=== PATIENT | male | born 1985 | race Caucasian/White ===

== ENCOUNTER 2016-10-21 19:03 | Inpatient (IN) | payer OTHER ==
[~2016-10-21] VITALS: Ht 175.3 cm; Wt 82.1 kg
[~2016-10-21 19:03] MED LIST: ABILIFY15 M1 PO; ALPRAZOLAM2 M2 PO; GABAPENTIN300 M2 PO; METHADONE10 MG/5 M2 PO
--- NOTE | 2016-10-21 19:20 | ED PSYCHIATRIC COMPLAINT ---
See Addendum History of Present Illness General Chief Complaint: Psychiatric Related Complaint Stated Complaint: DEPRESSION, +SI Source: patient Exam Limitations: no limitations Vital Signs & Intake/Output Vital Signs & Intake/Output Vital Signs Date Time Temp Pulse Resp B/P Pulse O2 O2 Flow FiO2 Ox Delivery Rate 10/23 1422 97.9 74 18 125/60 97 Room Air 10/23 1037 97.5 78 18 120/77 98 Room Air 10/23 0649 96.9 79 20 114/67 97 Room Air 10/22 2232 96.9 71 16 119/56 97 Room Air 10/22 1851 98.2 70 18 118/55 99 Room Air Allergies Coded Allergies: doxycycline (Severe, ANAPHYLAXIS 03/06/16) Fish Containing Products (UNKNOWN 03/06/16) cefaclor (UNKNOWN 03/06/16) codeine (UNKNONW 03/06/16) venom-honey bee (bee venom (honey bee)) (UNKNOWN 03/06/16) Triage Note: RECEIVED 30 YO MALE C/O "I DON'T WANT TO LIVE ANYMORE". PT C/O SEVERE DEPRESSION, PT HAS SELF INFLICTED CUT LI ON LEFT INNER WRIST. Triage Nurses Notes Reviewed? yes Onset: Gradual Duration: week(s):, waxing and waning Timing: recent history Severity: moderate Associated Symptoms: anxiety, suicidal ideation HPI: 30 yo gentleman presents with depression and suicidal ideation. He notes, "I've been feeling depressed for a long time... I'm under a lot of stress... My son's friend has been staying with us... and it makes me uncomfortable." He notes he tried "slashing my wrists, but it was hard." He notes prior attempts that have been unsuccessful. He has been admitted to psyche wards in the past. He denies other illness and is otherwise well. (ABRAHAM WELLINGTON,CASSY Christianson) Reconcile Medications Alprazolam 2 MG TABLET 1 TAB PO TID ANXIETY (Reported) Aripiprazole (Abilify) 15 MG TABLET 1 TAB PO DAILY MENTAL HEALTH (Reported) Gabapentin 300 MG CAPSULE 1 CAP PO TID UNKNOWN (Reported) Methadone HCl 10 MG/5 ML SOLUTION 70 MG PO DAILY MAINTENCE (Reported) (SANTIAGO WELLINGTON,AMBER Baca) Past History Travel History Traveled to [place] past 21 day No Medical History Any Pertinent Medical History? see below for history Neurological: NONE EENT: NONE Cardiovascular: NONE Respiratory: NONE Gastrointestinal: NONE Hepatic: NONE Renal: NONE Musculoskeletal: NONE Psychiatric: anxiety, bipolar disease, PTSD DEPRESSION1 Endocrine: NONE Blood Disorders: NONE Cancer(s): NONE Surgical History Surgical History: none Psychosocial History Who do you live with Family What is your primary language Luxembourgish Tobacco Use: Current Daily Use Daily Tobacco Use Amount/Type: => 5 Cigarettes daily Family History Hx Contributory? No (ABRAHAM WELLINGTON,CASSY Christianson) Review of Systems Review of Systems Constitutional: Reports: no symptoms. EENTM: Reports: no symptoms. Respiratory: Reports: no symptoms. Cardiovascular: Reports: no symptoms. GI: Reports: no symptoms. Genitourinary: Reports: no symptoms. Musculoskeletal: Reports: no symptoms. Skin: Reports: no symptoms. Neurological/Psychological: Reports: no symptoms. Hematologic/Endocrine: Reports: no symptoms. Immunologic/Allergic: Reports: no symptoms. All Other Systems: Reviewed and Negative (ABRAHAM WELLINGTON,CASSY Christianson) Physical Exam Physical Exam General Appearance: well developed/nourished, mild distress Head: atraumatic Eyes: Bilateral: PERRL, EOMI. Ears, Nose, Throat: normal pharynx, normal ENT inspection, hearing grossly normal Neck: normal inspection, supple Respiratory: normal breath sounds Cardiovascular: regular rate/rhythm Gastrointestinal: soft, non-tender Extremities: normal range of motion, superficial linear abrasion on left wrist Neurological/Psychiatric: awake, anxious, flat, oriented x 3 Appearance/Memory/Insight: disheveled Behavoir/Eye Contact/Speech: cooperative Thoughts/Hallucinations: no apparent hallucination Skin: intact, normal color, warm/dry SAD PERSONS SAD PERSONS Response Value Male Sex? yes 1 Depression/Hopelessness? yes 2 Excessive Ethanol/Drug Use? yes 1 Rational Thinking Loss? yes 2 Social Support? has support 0 Total 6 SAD PERSONS Done? yes (ABRAHAM WELLINGTON,CASSY Christianson) Progress Differential Diagnosis: depression, drug abuse, vs other. Plan of Care: Orders Procedure Date/time Status Continuous Observation Monitor 10/23 1600 Active Continuous Observation Monitor 10/23 1200 Active Continuous Observation Monitor 10/23 0759 Active Current Medications Sig/Bonny Start time Last Medication Dose Stop Time Status Admin Aripiprazole 15 MG AT BEDTIME 10/23 2200 AC (Abilify) 10/22/2016 7:20:57 PM Patient signed out to me by Dr. Maldonado. Pending inpatient crisis bed placement. (MANOLO JOHNSTON MD) Initial ED EKG: normal axis, normal intervals, normal p-waves, normal QRS complex, normal sinus rhythm Hand-Off Endorsed To: AMBER MALDONADO MD (CASSY ROSARIO MD) Hand-Off Endorsed To: MANOLO JOHNSTON MD Endorsed Time: 1900 Pending: other (BED SEARCH) Comments: Patient has been seen and evaluated by the triage clinician. Patient is to be admitted. A bed search is underway. (AMBER MALDONADO MD) Hand-Off Endorsed To: AMBER MALDONADO MD Endorsed Time: 0700 (MANOLO JOHNSTON MD) Departure Departure Disposition: STILL A PATIENT Condition: Stable Referrals: OCTAVIA MAN MD Departure Forms: Customer Survey General Discharge Information (CASSY ROSARIO MD) Departure Clinical Impression Primary Impression: Suicidal ideation Secondary Impressions: Cocaine abuse, Depression (AMBER MALDONADO MD) Disposition: STILL A PATIENT Condition: Stable Referrals: OCTAVIA MAN MD Departure Forms: Customer Survey General Discharge Information (CASSY ROSARIO MD) Departure Clinical Impression Primary Impression: Suicidal ideation Secondary Impressions: Cocaine abuse, Depression (AMBER MALDONADO MD) Patient has been seen and evaluated by the triage clinician. Patient is to be admitted. A bed search is underway. (AMBER MALDONADO MD) Hand-Off Endorsed To: AMBER MALDONADO MD Endorsed Time: 07 (MANOLO JOHNSTON MD) Departure Departure Disposition: STILL A PATIENT Condition: Stable Referrals: OCTAVIA MAN MD Departure Forms: Customer Survey General Discharge Information (CASSY ROSARIO MD) Departure Clinical Impression Primary Impression: Suicidal ideation Secondary Impressions: Cocaine abuse, Depression (AMBER MALDONADO MD) Departure Clinical Impression Primary Impression: Suicidal ideation Secondary Impressions: Cocaine abuse, Depression (AMBER MALDONADO MD)
--- NOTE | 2016-10-21 19:27 | NUR ---
SECURITY AT BEDSIDE FOR WANDING. PT CHANGED INTO BLUE SCRUBS. PT HAS 4 PHOTOS OF HIS AND CHILDREN WITH HIM. PER CHARGE NURSE BOONE, PT IS ABLE TO KEEP PHOTOS WITH HIM.
--- NOTE | 2016-10-21 19:48 | NUR ---
URINE TRIO AND SST, LAV AND BLUE TOP TUBES SENT TO LAB.
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
--- NOTE | 2016-10-21 19:55 | NUR ---
1 BELONGINGS BAG IN BH CLOSET AND 1 VALUABLE BAG IN SAFE.
[2016-10-21 19:57] LABS: ABSOLUTE BASOPHIL COUNT 0.1 /CUMM (0.0-0.2); ABSOLUTE EOSINOPHIL COUNT 0.1 /CUMM (0.0-0.7); ABSOLUTE GRANULOCYTE CT 6.6 /CUMM (1.4-6.5); ABSOLUTE LYMPH COUNT 3.6 /CUMM (1.2-3.4); ABSOLUTE MONOCYTE COUNT 0.7 /CUMM (0.10-0.60); BASOPHIL % 0.5 % (0.0-2.0); EOSINOPHIL % 1.1 % (0-5); GRANULOCYTE % 59.5 % (42.2-75.2); HEMATOCRIT 45.3 % (42-52); MEAN CORPUSCULAR HGB 28.6 PG (27.0-31.0); MEAN CORPUSCULAR HGB CONC 32.9 G/DL (33.0-37.0); MEAN PLATELET VOLUME 7.7 FL (7.4-10.4); PLATELET COUNT 272 /CUMM (130-400); RBC DISTRIBUTION WIDTH 14.7 % (11.5-14.5); WHITE BLOOD CELL COUNT 11.1 /CUMM (4.8-10.8)
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
--- NOTE | 2016-10-21 21:45 | NUR ---
PHARMACY CALLED FOR BRIANA.
--- NOTE | 2016-10-21 21:50 | NUR ---
The patient was evaluated by Crisis and discussed with Dr. Ann, who finds the patient to be an acute risk to self and others. He is in need of an inpatient admission and there are no beds on [facility], therefore a bed search will be started in the AM. Case discussed with Dr. Lea and CARMELINA Anguiano.
--- NOTE | 2016-10-21 22:02 | NUR ---
PT MEDICATED WITH ABILIFY, GABAPENTIN AND XANAX PER EMAR. PT ALSO MEDICATED WITH MOTRIN PER EMAR FOR HEADACHE.
--- NOTE | 2016-10-22 00:11 | NUR ---
PT RESTING ON BED. NORMAL RR NOTED. SITTER IN PLACE. WILL CONTINUE TO MONITOR.
--- NOTE | 2016-10-22 02:17 | NUR ---
PT CONTINUES TO REST ON BED. NO DISTRESS NOTED. SITTER IN PLACE.
--- NOTE | 2016-10-22 04:26 | NUR ---
PT RESTING ON BED QUIETLY. NORMAL RR NOTED. WILL CONTINUE TO MONIOR. SITTER IN PLACE.
--- NOTE | 2016-10-22 06:41 | NUR ---
PT RESTING ON BED. NORMAL RR NOTED. SITTER IN PLACE.
--- NOTE | 2016-10-22 07:34 | NUR ---
ASSUMED CARE OF PT AT THIS TIME. PT SLEEPING, REG RESP RATE NOTED. SITTER REMAINS PRESENT. WILL CTM
--- NOTE | 2016-10-22 08:40 | NUR ---
SPOKE TO [facility] IN [place], PTS METHADONE DOSE IS 70MG. AWARE
--- NOTE | 2016-10-22 08:51 | NUR ---
PT MEDICATED WITH METHADONE AND XANAX PER ORDER AT THIS TIME. PT C/O FEELING ANXIOUS. SITTER PRESENT. PT CALM AND COOPERATIVE.
--- NOTE | 2016-10-22 10:28 | NUR ---
Pt. re-evaluated by Crisis. Pt still endorses suicidal thoughts and wants to be admitted somewhere. Since there are no beds currently in [facility], a bed search was conducted. Pt's info was faxed to [facility].
--- NOTE | 2016-10-22 10:45 | NUR ---
PT MEDICATED PER EMAR AT THIS TIME, PT REFUSING ABILIFY AT THIS TIME, PER PT HE LIKES TO TAKE IT AT NIGHTTIME BECAUSE IT MAKES HIM TIRED. PT TEARFUL AT THIS TIME, TALKING ABOUT MULTIPLE STRESSORS IN HIS LIFE. EMOTIONAL SUPPORT PROVIDED.
--- NOTE | 2016-10-22 12:29 | NUR ---
PT RESTING IN ROOM SITTER REMAINS PRESENT. WILL CTM
--- NOTE | 2016-10-22 13:14 | ED PSYCHIATRIST/APRN CONSULT ---
Psychiatrist/CORK INSULATION SETTER ED Consult Assessment and Plan: Pt seen as follow-up. Notes still in distress. Wants to be hospitalized. Denies active SI or HI. MSE Appears as stated age. Cooperative behavior, good, appropriate eye contact. Nl speech rate and prosody. No psychomotor retardation or agitation. Mood fine Affect depressed, constricted, appropriate, non-liable. Linear and goal directed thought process. Denies SI or HI. Does not appear to be responding to internal stimuli. Denies AVHs, paranoia, or delusions. I/J: limited Pt in need of acute psychiatric stablization. Awaiting placement Bed search underway.
--- NOTE | 2016-10-22 14:27 | NUR ---
PT REMAINS RESTING ON STRETCHER, OFFERS NO COMPLAINTS SITTER REMAINS PRESENT. WILL CTM
--- NOTE | 2016-10-22 16:43 | NUR ---
PT MEDICATED PER EMAR AT THIS TIME. PT AWARE STILL WAITING FOR BED TO OPEN UP. PT OFFERS NO COMPLAINTS AT THIS TIME. SITTER REMAINS PRESENT
--- NOTE | 2016-10-22 17:15 | NUR ---
PTS FIANCE HERE WITH CLOTHING FOR PT IN CASE HE GETS TRANSFERRED TO ANOTHER FACILITY. CLOTHING CHECKED BY NURY AND LOCKED IN CLOSET. PT NOW HAS 3 BELONING BAGS IN CLOSET
--- NOTE | 2016-10-22 18:42 | NUR ---
Pt information faxed to [facility] for review for transfer/ admission to psychiatric inpatient
--- NOTE | 2016-10-22 18:54 | NUR ---
Crisis re-evaluated pt. No change. Positive for SI. Waiting for return calls from hospitals faxed about transfer. Pt requesting Nicotine patch, will inform medical staff.
--- NOTE | 2016-10-22 20:30 | NUR ---
PT MEDICATED PER EMAR. PT APPEARS TO BE CALM AND OFFERS NO COMPLAINTS AT THIS TIME.
--- NOTE | 2016-10-22 21:50 | NUR ---
PHARMACY CALLED FOR BRIANA.
--- NOTE | 2016-10-22 22:31 | NUR ---
PT MEDICATED PER EMAR. VSS. PT DENIES ANY PAIN. WILL CONTINUE TO MONITOR. SITTER IN PLACE.
--- NOTE | 2016-10-23 03:58 | NUR ---
PT RESTING QUIETLY ON STRETCHER. NORMAL RR NOTED. SITTER IN PLACE. WILL CONTINUE TO MONITOR.
--- NOTE | 2016-10-23 06:49 | NUR ---
PT RESTING QUIETLY ON STRETCHER. PT OFFERS NO COMPLAINTS. WILL CONTINUE TO MONITOR.
--- NOTE | 2016-10-23 07:45 | NUR ---
PT REQUESTING TO CHANGE UNDERWEAR AND SOCKS. PROVIDED NEW UNDERWEAR FROM BELONGING BAG AND NEW SOCKS. AWARE HE IS A BED SEARCH. Informed waiting has been performed.
--- NOTE | 2016-10-23 09:00 | NUR ---
MEDICATED WITH AM MEDS. AWARE HE IS A BED SEARCH. Informed waiting has been performed.
--- NOTE | 2016-10-23 10:26 | NUR ---
Pt information faxed for review to [facility] for possible inpatient psychiatric admission.
--- NOTE | 2016-10-23 12:16 | ED PSYCHIATRIST/APRN CONSULT ---
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 Pt notes continued SI and depression. Very worried about family and wants to stay near them for hospital placement. Has disabled 4yo child and 10mo child and family has no car. Tearful at times. MSE Appears as stated age. Cooperative behavior, good, appropriate eye contact. Nl speech rate and prosody. ++psychomotor retardation. Mood finot good Affect depressed, constricted, appropriate, non-liable. Linear and goal directed thought process. +SI or HI. Does not appear to be responding to internal stimuli. Denies AVHs, paranoia, or delusions. I/J: limited Awaiting acute psychiatric stablization Bed search underway
--- NOTE | 2016-10-23 12:30 | NUR ---
AWARE OF CRISIS CONTINUED SEARCH FOR A BED. Informed waiting has been performed.
--- NOTE | 2016-10-23 14:30 | NUR ---
AWARE OF CRISIS CONTINUED SEARCH FOR A BED. Informed waiting has been performed.
--- NOTE | 2016-10-23 16:21 | NUR ---
PT RECIEVED DINNER TRAY, CALM AND COOPERATIVE IN ROOM. MEDICATED WITH ATC MEDS AND PRN MOTRIN FOR CHRONIC BACK PAIN. AND CHILDREN VISITING. PER REQUEST OF PT AND , VALUABLES BAG OPENED IN FRONT OF PT, $15 [place] GIVEN TO AND REMAINING ITEMS RE-SEALED IN NEW BAG WITH PT PRESENT. PT VOICING NO FURTHER CONCERNS AT THIS TIME. AWAITING INPATIENT PSYCH BED. SITTERS IN ATTENDANCE FOR SAFETY.
--- NOTE | 2016-10-23 19:14 | NUR ---
PT STILL AWAITING INPATIENT PSYCH BED. GENERALLY HAS BEEN CALM, BECAME AGITATED DURING A PHONE CALL BUT RETURNED TO ROOM WITHOUT INCIDENT. SITTER IN PLACE.
--- NOTE | 2016-10-23 22:13 | NUR ---
PT MEDICATED WITH ABILIFY 15MG, NEURONTIN 300MG, AND XANAX 2MG PO. PT CALM AND COOPERATIVE. SITTERS PRESENT. NO APPARENT DISTRESS NOTED
--- NOTE | 2016-10-24 00:35 | NUR ---
PATIENT SLEEPING IN ROOM AT THIS TIME W/ REGULAR RESPIRATIONS NOTED. SITTER REMAINS AT DOORWAY. REGULAR RESPIRATIONS NOTED.
--- NOTE | 2016-10-24 02:46 | NUR ---
PATIENT REMAINS ASLEEP AT THIS TIME W/ REGULAR RESPIRATIONS NOTED. SITTER REMAINS W/ PATIENT. PATIENT SAFETY SHEET BEING CONTINUED BY SITTER. PATIENT TURNING AND REPOSITIONING SELF IN ROOM.
--- NOTE | 2016-10-24 05:01 | NUR ---
PATIENT CONTINUES TO SLEEP AT THIS TIME W/ REGULAR RESPIRATIONS NOTED. SITTER REMAINS W/ PATIENT. PATIENT SAFETY MONITOR SHEET CONTINUED BY LUCIEN.
--- NOTE | 2016-10-24 06:26 | NUR ---
AWOKE PATIENT TO OBTAIN VS. PATIENT DENIES ANY COMPLAINTS. SITTER REMAINS W/ PATIENT. POC: BED SEARCH.
--- NOTE | 2016-10-24 09:23 | NUR ---
PT MEDICATED WITH MORNING MEDS. PT ASKING FOR DAILY DOSE OF METHADONE 70 MG. WILL CHECK WITH PROVIDER.
--- NOTE | 2016-10-24 09:40 | NUR ---
PT MEDICATED WITH METHADONE PER eMAR.
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
--- NOTE | 2016-10-24 12:09 | NUR ---
REPORT GIVEN TO ASHLEIGH COSME IN [facility].
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
[2016-10-24] MEDS ORDERED: NEURONTIN300 M1 PO (13:28)
[2016-10-24] MEDS ORDERED: XANAX2 M1 PO (13:29)
[2016-10-24] MEDS ORDERED: SOMA350 M1 PO (13:30)
--- NOTE | 2016-10-24 13:37 | NUR ---
Admission Assessment: Patient reports depressed mood secondary to conflict with girlfriend, father of his children. Patient reports positive SI without a plan, will inform staff if suicide ideation becomes overwhelming. Patient has a seizure disorder and states has not had a seizure x1 year. Patient reports "voices in his head" that he sometimes talks too- unclear if auditory hallucinations. Patient tearful during intact, remains calm and cooperative.
[2016-10-24 16:22] VITALS: BP 117/72
[2016-10-24 16:26] VITALS: BP 117/72
[2016-10-24 19:38] VITALS: BP 139/78
[2016-10-24 19:44] VITALS: BP 139/78
--- NOTE | 2016-10-24 21:49 | NUR ---
PT IS ISOLATIVE AND WITHDRAWN, REMAINING IN BED FOR MAJORITY OF EVENING. COOPERATIVE AND COMPLIANT WITH STAFF. REFUSED WRAP UP MEETING THIS EVENING. NO COMPLAINTS OR SI REPORTED. PT HAS A STABLE MOOD AND FLAT/CONSTRICTED AFFECT.
[2016-10-25] VITALS (10 sets, daily range): BP systolic 110–139; BP diastolic 65–82
--- NOTE | 2016-10-25 06:31 | NUR ---
PT APPEARED TO SLEEP THRU THE NIGHT.
--- NOTE | 2016-10-25 11:58 | NUR ---
PT HAS BEEN VISIBLE IN THE [facility] TODAY. HIS GOAL WAS TO WORK ON WAYS TO COPE WITH DEPRESSION, AND RESOLVE ISSUES WITH FIANCE. IN THE [facility] PT HAS BEEN GOING TO [employer], AND INTERACTING WITH SOME OF HIS PEERS. PT COOPERATIVE WITH STAFF, AND ADJUSTING TO THE [place]. HE DENIES THOUGHTS OF HURTING HIMSELF WHEN ASKED.
--- NOTE | 2016-10-25 12:50 | History & Physical ---
General Information and HPI MD Statement: I have seen and personally examined JODY RABAGO and documented this H&P. The patient is a 30 year old M who presented with a patient stated chief complaint of ""I don't want to live in the". Source of Information: patient Exam Limitations: no limitations History of Present Illness: 30-year-old white male history of depression stating the medications are not working highly more stress at home but feeling depressed back of energy poor concentration and sleeping problems and for some lacerations to the wrist having suicidal ideations for all those reasons he comes to the hospital and is admitted for evaluation and adjustment of the medications Allergies/Medications Allergies: Coded Allergies: doxycycline (Severe, ANAPHYLAXIS 03/06/16) Fish Containing Products (UNKNOWN 03/06/16) cefaclor (UNKNOWN 03/06/16) codeine (UNKNONW 03/06/16) venom-honey bee (bee venom (honey bee)) (UNKNOWN 03/06/16) Home Med list Alprazolam (Xanax) 2 MG TABLET 2 MG PO TID ANXIETY (Reported) Carisoprodol (SOMA) 350 MG TABLET 350 MG PO TID PAIN (Reported) Gabapentin (Neurontin) 300 MG CAPSULE 300 MG PO TID SEIZURE (Reported) Methadone HCl 10 MG/5 ML SOLUTION 70 MG PO DAILY MAINTENCE (Reported) Compliance With Home Meds: UNKNOWN Past History Travel History Traveled to [place] past 21 day No Medical History Neurological: seizure EENT: NONE Cardiovascular: NONE Respiratory: NONE Gastrointestinal: NONE Hepatic: NONE Renal: NONE Musculoskeletal: NONE Psychiatric: anxiety, bipolar disease, PTSD DEPRESSION1 Endocrine: NONE Blood Disorders: NONE Cancer(s): NONE Isolation History: Standard Influenza Vaccine: 10/24/16 Surgical History Surgical History: none Past Family/Social History Employment History Employment Disability Review of Systems Review of Systems Constitutional: Reports: see HPI. Exam & Diagnostic Data Last 24 Hrs of Vital Signs/I&O Vital Signs Date Time Temp Pulse Resp B/P Pulse O2 O2 Flow FiO2 Ox Delivery Rate 10/25 1232 73 135/73 10/25 1231 77 135/73 10/25 0808 68 110/69 10/25 0749 97.0 68 110/69 10/24 1944 97.8 76 139/78 10/24 1938 97.8 76 139/78 10/24 1626 72 117/72 10/24 1622 72 117/72 Physical Exam General Appearance Alert, Oriented X3, Cooperative, No Acute Distress Skin many tattoos and a superficial laceration on the wrist and left inner thighs HEENT Atraumatic, PERRLA, EOMI, Mucous Membr. moist/pink Neck Supple, No JVD, No thryomegaly, +2 Carotid Pulse wo Bruit, No LAD Lymphatic Axillary nl, Cervical nl Cardiovascular Regular Rate, No Murmurs Lungs Clear to Auscultation, Normal Air Movement Abdomen Normal Bowel Sounds, Soft, No Tenderness Neurological Exam Findings: nonfocal Cranial Nerves II through XII: Intact Extremities No Clubbing, No Cyanosis, No Edema, Normal Pulses Last 24 Hrs of Labs/Carlos: Glucose 82, BU and 20 creatinine 1.0 GFR about 60, electrolytes within normal limits liver function tests within normal limits. Serum alcohol level less than 10 urine toxicology showed benzodiazepines more than 800 cocaine more than 1000, methadone more then 735 area WBCs 11,100, hemoglobin 14.9, hematocrit 45.3. Diagnostic Data ITS Data Unobtainable at this time Assessment/Plan As Ranked By This Provider Problem List: 1. Suicidal ideation 2. Depression 3. Cocaine abuse 4. Depression Miscellaneous Miscellaneous Documentation Attending Case Discussed With: AMANDA WELLINGTON,CARL Caruso Primary Care Physician: ADRIANA WELLINGTON,CURTIS Mckeon Patient sees these Specialists Psychiatry Level of Patient Care: QUEENIE Agrawal Consults Needed: Consulting Specialty: Psychiatry Consulting Physician: Dr. Burdick Reason for Consult: depression suicidal ideations
--- NOTE | 2016-10-25 16:32 | SOCIAL WORKER TX PLAN PSYCH ---
Treatment Plan - Please Document: - Evidence that there is ongoing collaboration between - the patient and the interdisciplinary team, - including the patient's active participation and - responsibility for engaging in the treatment regimen, - and that the treatment plan is individualized and - relevant to the patient's conditions. - Treatment plan should reflect documentation indicating - that all active therapeutic efforts are included. Strengths/Capabilities: The patient does have good insight into his need for treatment and is motivated to attend. Physical Limitations (Interventions): chronic back pain Patient Identified Trmt Goals: " I want to get my life in order." Discharge Plan: IOP Problem/Goals #1 Problem #1: suicidal ideation Goal (Short Term): Today I will attend 2 groups Today I will identify 2 stressors Today I will identify 2 positive supports Today I will work on recognizing 3 emotions I am feeling Goal (Prison): Be free of suicidal thoughts/attempts Develop 3 coping skills to deal with depression Identify 3 positive support systems to call in crisis Develop a crisis plan with 3 carranza people Identify 2 positive traits per week about myself Identify 2 things I have to look forward to Identify 2 positive people in my life and 1 thing I appreciate about them Interventions: Learn ways to manage depressive symptoms accordingly and identify positive supports to manage life stressors and mood fluctuations. Modalities: Encourage groups, education on depression, provide CBT treatment, family meeting. DSM5/PS Stressors/Medical Prob Diagnosis' (DSM 5, Stressors, Medical): F32.9 Unspecified Depressive Disorder, F14.10 Stimulant Use Disorder, Cocaine type. mild R/O Bipolar disorder, most recent episode depressed with Psychosis. Medical: Chronic Back Pain Stressors: Relationship issues Current GAF: 25 Treatment Team - Responsibilities of members of the treatment team include: - Medication Management- MD or FOOT CASTER - Medication Administration and Monitoring- Nurse - Group Therapy- Occupational Therapist - 1:1 Therapy,Disch Planning,family involvement-Scheduling Agent
--- NOTE | 2016-10-25 16:32 | SOCIAL WORKER PROG NOTE PSYCH ---
Social Work Progress Note Progress Note SW met with patient for the first time today. Patient reported feeling depressed today but denied any active suicidal thoughts or plans. Patient reports that he recently relapsed on cocaine and his fiance suspected he was using and threatened to call the financial manager on him. She did end up calling the financial manager on him when she found him cutting his wrist. Patient reports that he has a long hx of mental health issues and would like to seek [facility] treatment. He reports some substance abuse hx but does not appear to fit criteria for superintendent container terminal substance abuse treatment. Patient stated that [facility] past and would be open to going there again if rehab is not an option. Patient is also prescribed methadone and benzodiazepines which could be a barrier for residential rehab. This procedure writer spoke to patients andrew, Jaclyn, and asked if we could arrange a family meeting. She is going to call me back tomorrow to confirm time. Together we will discuss a discharge plan for patient. Patient is on probation as well but reported that he did not need this procedure writer to contact his PO at this time. He states that his PO is aware he is currently in the hospital.
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
--- NOTE | 2016-10-25 17:38 | IP INCIDENTAL NOTE PSYCH ---
Incidental Note Notation: Methadone 70mg daily verfied with nurseTai at [facility] in [place] today.
--- NOTE | 2016-10-25 21:24 | NUR ---
PT IS CALM, COOPERATIVE WITH STAFF AND PEERS, AND COMPLIANT WITH UNIT RULES. PT IS OFTEN IN [place], INTERACTING WELL WITH OTHERS. HAS MOMENT OF AGITATION WITH STAFF AND TENDS TO RUMINATE OVER ISSUES. MOOD IS STABLE, AFFECT IS EUTHYMIC, COMMUNICATION IS ORGANIZED AND APPEARS NORMAL IN ALL RESPECTS, AND APPETITE IS NORMAL. PT DENIES SI AT THIS TIME.
[2016-10-26] VITALS (8 sets, daily range): BP systolic 102–143; BP diastolic 62–76
--- NOTE | 2016-10-26 02:59 | NUR ---
Slept well, no complaints offered.
--- NOTE | 2016-10-26 11:38 | NUR ---
PT IS OUT IS COMPLIANT AND COOPERATIVE WITH UNIT RULES TODAY. PT IS OUT IN THE COMMUNITY INTERACTING AT TIMES WITH STAFF AND PEERS. PT IS ACTIVE IN SOME GROUPS. PT MOOD IS STABLE WTIH A CONSTRICTED AFFECT. PT DENIES SI THOUGHTS. PT IS NOT SCORING ON CIWA ASSESSMENT.
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
--- NOTE | 2016-10-26 16:13 | SOCIAL WORKER PROG NOTE PSYCH ---
Social Work Progress Note Progress Note Patient continues to present today with depressed mood and reports anxiety about discharge plan from the hospital. Patient is aware that his current medication regimen, xanax and methadone, are a barrier for him going to longer term treatment such as rehab[facility]. Patient was provided with a list of sober houses and started to call today to find out their policy on medications/ bed availability/ monthly rent. Patient states that he has been having a difficult time getting in touch with his fiance and feels that she may be purposely avoiding him because she is upset with him. He reports guilt over recently lying to her and making poor choices. Patient expresses a desire for further help and is willing to do the work needed to stay sober and work on his mental health. Patient left voicemails for numerous sober houses today and spoke to some which he plans to follow up with tomorrow.
--- NOTE | 2016-10-26 21:18 | NUR ---
PT IS VISIBLE ON UNIT, SOCIAL WITH PEERS AND COOPERATIVE/COMPLIANT WITH STAFF. PT WILL OFTEN ISOLATE IN ROOM. REFUSED WRAP UP MEETING THIS EVENING. NO COMPLAINTS OR SI REPORTED. PT HAS A STABLE MOOD AND FULL RANGE AFFECT.
--- NOTE | 2016-10-27 07:10 | NUR ---
PATIENT UP TO BATHROOM ONCE, OTHERWISE SLEPT ALL NIGHT.
[2016-10-27 07:59] VITALS: BP 121/67
[2016-10-27 08:00] VITALS: BP 121/67
[2016-10-27 12:34] VITALS: BP 113/74
--- NOTE | 2016-10-27 12:59 | SOCIAL WORKER PROG NOTE PSYCH ---
Social Work Progress Note Progress Note Patient presented with depressed mood and affect today. Patient reported that his fiance is unable to come in for a family meeting due to being home with 2 children today and having to take their son to a doctors appointment today. Patient did agree to have a phone conference with her today and he will check her availability. Patient continued to express desire for further treatment and seeking sober housing. We started to discuss discharge plan and patient expressed desire to come to [facility]. I informed him that we will be unable to take him in our IOP due to being on benzodiazepines and methadone. Patient was upset to hear this and had a difficult time believing this was accurate information. I informed him that he has upcoming appointments with [facility] arranged and they are looking into placing him in their IOP. Patient was also notified that we are considering discharge for tomorrow and patient became very upset stating he is not ready to go and "not right in the head." When I asked him what he meant by this he stated that "I am still have suicidal thoughts" and then he proceeded to walk out of my office. This typewriter repairer will attempt to meet with patient again later in the day today and discharge may need to be reconsidered. Patient has been seen attending groups on the unit throughout the day and interacting appropriately with peers and staff.
--- NOTE | 2016-10-27 13:20 | NUR ---
PT IS COMPLIANT AND COOPERATIVE WITH UNIT RULES. PT IS OUT IN COMMUNITY INTERACTING WELL WITH STAFF AND PEERS. PT IS ACTIVE IN GROUPS. PT MOOD IS STABLE WITH A FULL RANGE AFFECT. PT DENIES SI THOUGHTS. PT IS STILL LOOKING AT PLACEMENTS AND IS STILL MAKING PHONE CALLS. PT GOAL THIS MORNING WAS TO KEEP EMOTIONS IN CHECK.
--- NOTE | 2016-10-27 15:03 | CP SOUTH PROGRESS NOTE PSYCH ---
Psych (Inpt) Progress Note Progress Note Include the following elements, when applicable: Involvement in the active treatment of the patient with behavioral observations of the patient and the patient's response to the treatment. Review of the ongoing treatment process in the context of the treatment plan. Indication of how multi-disciplinary staff members are carrying out the treatment plan. Plans for future interventions and recommendations for revision of the treatment plan. Liaison with other physicians/providers. Progress Note: I discussed this patient's progress to date, current mental status, treatment process in the context of the treatment plan, and discharge planning with staff/ team in the daily morning inpatient team meeting. I also met with the patient myself in individual session. S: "I'm upset, they want to discharge me tomorrow...I'm not ready. O: Current Medications Sig/Bonny Start time Last Medication Dose Route Stop Time Status Admin Alprazolam 2 MG .STK-MED ONE 10/26 223 DC PO 10/26 223 Alprazolam 2 MG .STK-MED ONE 10/26 1623 DC PO 10/26 1624 Alprazolam 2 MG TID 10/21 2200 AC 10/27 PO 10/28 2159 0832 Aripiprazole 15 MG AT BEDTIME 10/23 2200 AC 10/26 PO 2239 Carisoprodol 350 MG TID 10/24 1600 AC 10/27 PO 0832 Divalproex Sodium 500 MG 0800,10/26 0800 AC 10/27 PO 0832 Gabapentin 400 MG TID 10/24 1600 AC 10/27 PO 0832 Ibuprofen 800 MG TIDPRN 10/21 2145 AC 10/23 PO 1620 Methadone HCl 70 MG DAILY 10/25 1000 AC 10/27 PO 0832 Nicotine 21 MG DAILY 10/24 1352 AC 10/27 TOP 0832 Prazosin HCl 1 MG AT BEDTIME 10/25 2200 AC 10/26 PO 2239 Vital Signs Date Time Temp Pulse Resp B/P B/P Pulse O2 O2 Flow FiO2 Mean Ox Delivery Rate 10/27 1234 82 113/74 10/27 0800 97.1 86 121/67 10/27 0759 97.1 86 121/67 10/26 2239 98.2 88 16 137/76 10/26 1940 98.2 88 137/76 10/26 1937 98.2 88 137/76 10/26 1605 94 129/72 10/26 1555 94 129/72 A: Chart, progress notes, labs, VS and medication list were reviewed. Met with patient individually this afternoon. A&Ox3. Speech was normal in rate, tone and volume. Eye contact was appropriate. He noted feeling upset over anticipated discharge tomorrow. He reported "not feeling ready, If I go I'll kill myself." He reported passive intermittent suicidal ideation today upon hearing this news. Denied suicide plans or intent. He gave a safety promise while on unit. He expressed frustration about having to make phone calls to programs and [facility], rather than having staff do this for him. Reminded the patient of the importance of him being involved in his care. He shared that he was interested in attending an IOP post-discharge; when informed that being on Xanax 2mg TID would likely be a barrier to most dual-diagnosis programs he became upset reporting "I don't have a drug problem" despite acknowledging that his utox was (+) for cocaine in addition to prescribed bzd and mmt. Patient unwilling to taper off of Xanax on an outpatient basis. He reported his mood was "more stable," that he had no episodes of crying today. However, remains depressed. Depression: 5/10 (10 being the worst). Anxiety: 6/10 (10 being the worst). Reported + hopelessness and guilty around his relationship with his fiance. Denied worthlessness and helplessness. He denied HI, AVH. Denied PI and nightmares. There was no evidence of paranoia or dario delusions. Insight/ judgement remains limited. Thought process was linear. Cognition was grossly intact. He reported tolerating all medications well and denied untoward medication effects. P: 1. Continue monitoring patient on unit for safety, mood and suicidal ideation. 2. Continue current medications. 3. Depakote level scheduled for tomorrow at 0600 (will not be a trough level) in case of discharge tomorrow. Otherwise will repeat level on Monday if he remains on unit. 4. Dispo planning per primary team.
[2016-10-27 16:00] VITALS: BP 143/75
[2016-10-27 19:50] VITALS: BP 123/69
--- NOTE | 2016-10-27 21:11 | NUR ---
PT IS CALM, COOEPRATIVE WITH STAFF AND PEERS, AND COMPLIANT WITH UNIT RULES. PT IS OFTEN IN MILIEU, INTERACTING WELL WITH OTHERS. MOOD IS STABLE, AFFECT IS EUTHYMIC TO FULL RANGE, COMMUNICATION IS ORGANIZED AND APPEARS NORNMAL IN ALL RESPECTS, AND APPETITE IS NORMAL. PT DENIES SI AT THIS TIME.
[2016-10-28 07:58] VITALS: BP 126/65
--- NOTE | 2016-10-28 10:30 | CP SOUTH PROGRESS NOTE PSYCH ---
Psych (Inpt) Progress Note Progress Note Include the following elements, when applicable: Involvement in the active treatment of the patient with behavioral observations of the patient and the patient's response to the treatment. Review of the ongoing treatment process in the context of the treatment plan. Indication of how multi-disciplinary staff members are carrying out the treatment plan. Plans for future interventions and recommendations for revision of the treatment plan. Liaison with other physicians/providers. Progress Note: I discussed this patient's progress to date, current mental status, treatment process in the context of the treatment plan, and discharge planning with staff/ team in the daily morning inpatient team meeting. I also met with the patient myself in individual session. S: "What's up with my medication, what got changed?" O: Laboratory Tests 10/28 0647 Toxicology Valproic Acid (50 - 120 ug/mL) 45.7 L Current Medications Sig/Bonny Start time Last Medication Dose Route Stop Time Status Admin Alprazolam 2 MG TID 10/21 2200 AC 10/28 PO 11/04 2158 0815 Aripiprazole 15 MG AT BEDTIME 10/23 2200 AC 10/27 PO 2205 Carisoprodol 350 MG TID 10/24 1600 AC 10/28 PO 0815 Divalproex Sodium 500 MG 0800,2000 10/26 0800 AC 10/28 PO 0937 Gabapentin 400 MG TID 10/24 1600 AC 10/28 PO 0815 Ibuprofen 800 MG TIDPRN 10/21 2145 AC 10/23 PO 1620 Methadone HCl 70 MG DAILY 10/25 1000 AC 10/28 PO 0815 Nicotine 21 MG DAILY 10/24 1352 AC 10/28 TOP 0815 Prazosin HCl 1 MG AT BEDTIME 10/25 2200 AC 10/27 PO 2205 Vital Signs Date Time Temp Pulse Resp B/P B/P Pulse O2 O2 Flow FiO2 Mean Ox Delivery Rate 10/28 0758 97.4 94 126/65 10/27 2205 89 123/69 10/27 1950 98.2 89 123/69 10/27 1600 85 143/75 10/27 1234 82 113/74 A: Chart, progress notes, VS, labs and medication list were reviewed. Vital signs within normal limits. VPA level subtherapeutic (non-trough level). Reviewed patient's progress with nursing staff. Nursing reported patient appeared sedated this morning, which was observed on my encounter with him. Of note, this was the first time during hospitalization where patient appeared quite sedated. There was no evidence of seizure activity overnight. Patient had visit last evening. Concern for ? substance being passed during visit. Met with the patient today together with Coty Adame LCSW in his room at 10: 20AM today [facility] Patient was found sleeping on his bed. He awoke to voice. Appeared lethargic with slurred speech, eyes barely opened, rummaging through a pile of papers looking for the fax number to [facility]. He told Ctoy "I need to speak to my provider." I informed him that I was here. He stated that new medication last night was making him feel tired. Medication list and administration history were reviewed (no meds were increased or started by me or by on-call MD off hours). I additionally told patient that his medications have remained the same since since initiation of Depakote and Prazosin on 10/25/16. Met with patient again individually later today. He appeared less lethargic and spoke clearly, normal in rate, tone and volume. He was A&Ox3. Eye contact was appropriate. Mood was "sad, depressed." Affect was calm and constricted. I asked him if any medications/substances were brought to him during visiting hours. He denied. He shared about feeling stressed in his home, stated that the nurses who care for his son overwhelm him. He demonstrated poor insight into the reasons why this might be. He reported depression and anxiety of 5/10 (10 being the worst). He reported intermittent, passive suicidal ideation. He denied plans or intent. Gave a safety promise while on unit. He denied feeling worthless. Reported hopelessness and helplessness. Remains guilty over stressed relationship with fiance. He denied homicidal ideation. He denied auditory and visual hallucinations. Denied paranoid thoughts. Thought process was linear. Cognition was grossly intact. P: 1. Continue current medications; continue monitoring response. 2. Continue monitoring on unit for safety, mood and suicidal ideation. 3. ALL patient visits must be visible in the milieu. 4. Room check. 5. Rpt VPA level tomorrow morning for trough level. 6. Likely discharge on 10/31/16.
--- NOTE | 2016-10-28 11:21 | SOCIAL WORKER PROG NOTE PSYCH ---
Social Work Progress Note Progress Note Patient had meeting this morning from director from [facility] ([facility] located in [place], [place]). Patient completed phone screening yesterday and application was faxed over. Patient states that they do have a bed available for him and are interested in taking him in the program. They requested further information on his current medications so this promotion writer faxed over his current med list this AM. Patient presented overly sedated this AM, slurring words and barely being able to keep his eyes open. He reported that new medication was making him feel this way, but this promotion writer spoke to [employer] and no med change was noted. Patient continues to report passive suicidal thoughts and not being able to contract for safety if discharged from the hospital. Patient reports a desire to go to this [facility] and has agreed to follow up with [facility]. I am still waiting to hear from [facility] on whether or not patient can attend their IOP program. He does have appointment in place with his clinician Marshall Clifton on @ 11am.
[2016-10-28 12:20] VITALS: BP 134/72
--- NOTE | 2016-10-28 14:39 | NUR ---
in and out of room. Mood is stable, euthymic affect. seems somewaht more obtunded since receiving morning meds. MD aware. denied thoughts of self harm when asked
[2016-10-28 15:53] VITALS: BP 145/78
[2016-10-28 20:19] VITALS: BP 133/70
--- NOTE | 2016-10-28 22:05 | NUR ---
PT IS STABLE AND COMPLIANT. CAN BE A LITTLE INAPPROPRIATE AT TIMES IN HIS CONVERSATION WITH OTHERS. PT CAN GET IRRITATED AND HAS BEEN ENCOURAGED TO TALK TO STAFF IF/WHEN HE HAS A PROBLEM. PT DENIES ANY THOUGHTS OF SI AT THIS TIME.
--- NOTE | 2016-10-29 09:36 | NUR ---
LAB REPORTS MAGNESIUM=0.5. DR VALLADARES AWARE AND CALLED PLACED TO DR CASTLE WHO IS COVERING FOR DR STRINGER.PT TO HAVE IM MAGNESIUM REPLACEMENT AT THIS TIME
[2016-10-29 12:24] VITALS: BP 118/69
--- NOTE | 2016-10-29 13:05 | CP SOUTH PROGRESS NOTE PSYCH ---
Psych (Inpt) Progress Note Progress Note Include the following elements, when applicable: Involvement in the active treatment of the patient with behavioral observations of the patient and the patient's response to the treatment. Review of the ongoing treatment process in the context of the treatment plan. Indication of how multi-disciplinary staff members are carrying out the treatment plan. Plans for future interventions and recommendations for revision of the treatment plan. Liaison with other physicians/providers. Progress Note: sedated today, more so than yesterday. Concern for someone slipping him some drugs; he denied. He had been sedated in earlier days as well. We discussed his mood, he was irritated that he is so drowsy, believed he was on higher doses of medication. He stated that he would like to be changed to another medication and we discussed clonazepam taper from xanax but that since he had been on xanax for several years, this would take weeks to complete and he would benefit from the taper on an outpatient basis. He was agreeable. We also discussed utox to see if there was anything else in his system that was making him more sedated. His VPA level is 47; similar to (45) previous level). He stated that he was taking medication w/o issue. His dose is lower which could account for the lower level? MSE: young aged man, fair hygiene and grooming. Poor eye contact, sedated, with psychomotor slowing. Affect constricted to blunted, mood neutral to dysphoric, appears irritable at times. Speech is slow and slurred at times due to sedation. Thought process is linear. Thought content negative for thoughts to harm himself /others. Denied hallucinations currently. Fair insight; fair judgment. A: 30 y/o man w/ hx dx of bipolar d/o, substance use d/o, currently withdrawn, sedated and depressed at times. He appears more sedated than yesterday, concern for some drug use recently. P: Target risk factors/active sx (residual depressive sx, sedation) w/education; Medication, engage in groups, milieu therapy. VPA level remains low; may be b/c on lower dose. Agreed to do utox to r/o any other substance contributing to his sedation. Re-eval tmr and consider med changes if remains sedated.
[2016-10-29 16:10] VITALS: BP 140/86
[2016-10-29 19:45] VITALS: BP 136/69
--- NOTE | 2016-10-29 21:13 | NUR ---
PT IS CALM, COOPERATIVE WITH STAFF AND PEERS, AND COMPLIANT WITH UNIT RULES. PT IS BOTH IN AND OUT OF MILIEU, INTERACTING WELL WITH OTHERS DURING THE TIMES APPEARING IN MILIEU. PT WILL ISOLATE FOR LONG PERIODS IN PT ROOM, SLEEPING. MOOD IS STBALE, AFFECT IS EUTHYMIC, APPEARS LETHARGIC WHILE IN MILIEU, SLEEPING FOR LONG PERIODS OF TIME IN PT ROOM. COMMUNICATION IS ORGANIZED AND APPEARS NORMAL IN ALLRESPECTS, AND APPETITE IS NORMAL. PT DENIES SI AT THIS TIME.
--- NOTE | 2016-10-30 05:31 | NUR ---
PT SOMEWHAT SEDATED ON A SLEW OF MEDS. PT DIFFICULTY WITH PUTTING THOUGHTS TOGETHER. PT APPEARED TO SLEEP.
[2016-10-30 07:52] VITALS: BP 140/77
--- NOTE | 2016-10-30 10:07 | NUR ---
PT BECAME LOUD WITH [employer] WHEN LIMITS WERE SET ON HIM TOUCHING ANOTHER PT (MALE). HE THEN WAS INSISTING THAT HE PUT FOOD IN THE MICROWAVE AND SOMEONE TOOK IT. PT REMINDED THAT WE DO NOT HAVE MICROWAVE AVAILABLE FOR PT USE. HE THEN TRIED TO FOLLOW STAFF INTO THE STAFF LOUNGE AND WHEN LIMITS WERE SET HE SLAMMED THE DOOR AND PUNCHED IT. SECURITY WAS CALLED AND WILL NOTIFY DR VALLADARES OF PTS BEHAVIOR. HE APPEARS OVERSEDATED..MUMBLING HIS WORDS AND FALLING ASLEEP WHILE TALKING
[2016-10-30 12:12] VITALS: BP 146/78
--- NOTE | 2016-10-30 12:50 | CP SOUTH PROGRESS NOTE PSYCH ---
Psych (Inpt) Progress Note Progress Note Include the following elements, when applicable: Involvement in the active treatment of the patient with behavioral observations of the patient and the patient's response to the treatment. Review of the ongoing treatment process in the context of the treatment plan. Indication of how multi-disciplinary staff members are carrying out the treatment plan. Plans for future interventions and recommendations for revision of the treatment plan. Liaison with other physicians/providers. Progress Note: Yesterday evening staff noted him to be disorganized, odd and more active, perhaps paranoid. This morning less sedated (though still sedated overall); Said that staff has been giving him too much attitude, that he feels they are ganging up against him; frustrated w/ being drowsy, not happy about the way he feels. We discussed tapering his xanax and soma, which he was agreeable to discussed senior care plan of clonazepam rather than xanax and he appeared agreeable as well. MSE: young aged man, fair hygiene and grooming. Good eye contact, less sedated than yesterday though still w/ psychomotor slowing and lethargy. Affect more reactive, mood dysphoric but future oriented and optimistic about getting better , looking forward to seeing fiancee. Speech less slow and less slurred. Thought process is linear. Thought content negative for thoughts to harm himself/others but positive for depression. Not internally preoccupied. Fair insight; fair judgment. A: 30 y/o man w/ hx dx of bipolar d/o, substance use d/o, currently withdrawn, sedated and depressed at times. He has been less sedated today. Utox did not show any significant change. P: Agreed to lower day time xanax, so 2mg qam, 1mg at 4pm, 2mg qpm; and d/c 4pm soma dosing; re-eval sedation tmr. MCC taper to clonazepam.
[2016-10-30 16:13] VITALS: BP 134/66
[2016-10-30 20:01] VITALS: BP 141/64
--- NOTE | 2016-10-30 21:41 | NUR ---
PT IS CALM, COOPERATIVE WITH STAFF AND PEERS, AND COMPLIANT WITH UNIT RULES. PT IS OFTEN IN MILIEU, INTERACTING WELL WITH OTHERS. WILL ISOLATE AT TIMES IN PT ROOM, SLEEPING. MOOD IS STABLE, AFFECT IS EUTHYMIC TO FULL RANGE, COMMUNICATION IS ORGANIZED AND APPEARS NORMAL IN ALL RESPECTS, AND APPETITE IS NORMAL. PT DENIES SI AT THIS TIME.
--- NOTE | 2016-10-31 07:08 | NUR ---
PT APPEARED TO SLEEP WELL. 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
[2016-10-31 07:45] VITALS: BP 123/72
--- NOTE | 2016-10-31 08:16 | CP SOUTH PROGRESS NOTE PSYCH ---
Psych (Inpt) Progress Note Progress Note Include the following elements, when applicable: Involvement in the active treatment of the patient with behavioral observations of the patient and the patient's response to the treatment. Review of the ongoing treatment process in the context of the treatment plan. Indication of how multi-disciplinary staff members are carrying out the treatment plan. Plans for future interventions and recommendations for revision of the treatment plan. Liaison with other physicians/providers. Progress Note: I discussed this patient's progress to date, current mental status, treatment process in the context of the treatment plan, and discharge planning with staff/ team in the daily morning inpatient team meeting. I also met with the patient myself in individual session. S: "I feel better, not as tired." O: Current Medications Sig/Bonny Start time Last Medication Dose Route Stop Time Status Admin Alprazolam 2 MG BID 10/30 2200 AC 10/30 PO 11/06 2159 2134 Alprazolam 1 MG 1600 10/30 1600 AC 10/30 PO 11/06 1559 1628 Alprazolam 2 MG TID 10/21 2200 DC 10/30 PO 11/04 2158 0825 Aripiprazole 15 MG AT BEDTIME 10/23 2200 AC 10/30 PO 2135 Carisoprodol 350 MG BID 10/30 2200 AC 10/30 PO 2136 Carisoprodol 350 MG TID 10/24 1600 DC 10/30 PO 0934 Divalproex Sodium 500 MG 0800,10/26 0800 AC 10/30 PO 1953 Gabapentin 400 MG TID 10/24 1600 AC 10/30 PO 2135 Ibuprofen 800 MG TIDPRN 10/21 2145 AC 10/23 PO 1620 Methadone HCl 70 MG DAILY 10/25 1000 AC 10/30 PO 0824 Nicotine 21 MG DAILY 10/24 1352 AC 10/30 TOP 0822 Prazosin HCl 1 MG AT BEDTIME 10/25 2200 AC 10/30 PO 2134 Vital Signs Date Time Temp Pulse Resp B/P B/P Pulse O2 O2 Flow FiO2 Mean Ox Delivery Rate 10/31 0745 97.2 78 123/72 10/30 2133 97.8 87 16 141/64 10/30 2001 97.8 87 141/64 10/30 1613 79 134/66 10/30 1212 98 146/78 A: Chart, progress notes, VS, and medication list were reviewed. Soma was decreased from 350mg TID to 350mg BID. Xanax was also decreased from 2mg TID to 2mg BID and 1mg every evening. VPA level (10/29/16) resulted 47.6. Per nursing reports, patient became agitated last evening punching doors. He was redirectable with security presence. Rpt utox over the weekend was largely unchanged. Met with patient today at 8:10AM. He reportedsome improvement in energy since adjustments to Soma and Xanax. However, still reported daytime tiredness. Attributed tiredness to Depakote. Pt was agreeable to switch from Depakote to Depakote ER. This will start tomorrow night, patient was informed. He was noted today to show some mood lability, mostly irritability. Eye contact was appropriate. Speech was not slurred; coherent, normal in rate, tone, and volume. Reported depression of 3/10 (10 being the worst) and anxiety of 5/10 (10 being the worst). He reported some ambivalence as to where he will discharge to, given that his fiance will not allow him to return to their home. He reached out to his grandmother who lives in [place] and is awaiting a return phone call, to ask if he could temporarily reside there until he could get into a [facility]. He also is waiting for a decision from [facility], about whether he has been accepted. He denied feeling hopeless, helpless, worthless and guilty. He denied passive and active suicidal ideation, plans and intent. He identified protective factors of his children and fiance. He denied homicidal ideation, auditory and visual hallucinations. Denied PI. No evidence of internal preoccupation. Thought process was linear and goal-directed. Cognition was grossly intact. He reported his sleep and appetite were good. Denied presence of NMAs. P: 1. Continue monitoring patient on unit for safety, mood and suicidal ideation. 2. Change Depakote 500mg BID to Depakote ER 1,000mg at bedtime; will start at bedtime. Patient will receive 1 x dose of Depakote 500mg QHS tonight. 3. Continue all other medications. 4. Dispo planning per primary team.
[2016-10-31 12:25] VITALS: BP 136/70
--- NOTE | 2016-10-31 13:02 | NUR ---
PT IS COMPLIANT AND COOPEATIVE [facility] UNIT RULES. PT CAN BE IRRITABLE AT TIMES WHEN THINGS DON'T GO HIS WAY. PT WILL TALK UNDER HIS BREATH ABOUT STAFF BUT DIDN'T SAY MUCH DIRECTLY TO STAFF. PT INTERACTS WELL WITH OTHER PEERS. PT IS NOT ATTENDING MANY GROUPS. PT MOOD IS STABLE WITH A CONSTRICTED AFFECT. PT DENIES SI THOGUHTS.
--- NOTE | 2016-10-31 13:41 | SOCIAL WORKER PROG NOTE PSYCH ---
Social Work Progress Note Progress Note Pt states he "doesn't want to pay for the sober house, because that money is for his family, and states his girlfriend is requesting him to go to a "rehab" before coming home. Pt made calls and referrals were made per his request to [facility] and [facility] in [place], he completed the screening for [facility] and a message was left for Eleonora at [facility] [phone] to find out the status of referral. Pt reports he is feeling overwhelmed, anxious and he is tearful, stating "I do not want to lose my family".
[2016-10-31 16:10] VITALS: BP 128/75
--- NOTE | 2016-10-31 16:24 | SOCIAL WORKER PROG NOTE PSYCH ---
Social Work Progress Note Progress Note Faxed a referral to [facility] and [facility].
[2016-10-31 20:07] VITALS: BP 134/70
--- NOTE | 2016-11-01 04:51 | NUR ---
Slept well, no complaints offered.
[2016-11-01 07:55] VITALS: BP 114/63
--- NOTE | 2016-11-01 10:35 | IP INCIDENTAL NOTE PSYCH ---
Incidental Note Notation: Phone conference scheduled with andrew at 2PM, today.
[2016-11-01 12:31] VITALS: BP 126/74
--- NOTE | 2016-11-01 12:55 | NUR ---
PT USES [employer] AT TIME AND NEEDS TO BE REDIRECTED AWAY FROM TALKING THIS WAY. PT IS OUT IN COMMUNITY INTERACTING WITH STAFF AND PEERS. PT IS ATTENDING GROUPS. PT GOAL THIS MORNING WAS TO TOUCH BASE WITH COMMUNICATIONS DEPARTMENT HEAD ABOUT BED PLACEMENT. PT MOOD IS STABLE WITH A CONSTRICTED AFFECT. PT DENIES SI THOGUHTS.
--- NOTE | 2016-11-01 13:11 | CP SOUTH PROGRESS NOTE PSYCH ---
Psych (Inpt) Progress Note Progress Note Include the following elements, when applicable: Involvement in the active treatment of the patient with behavioral observations of the patient and the patient's response to the treatment. Review of the ongoing treatment process in the context of the treatment plan. Indication of how multi-disciplinary staff members are carrying out the treatment plan. Plans for future interventions and recommendations for revision of the treatment plan. Liaison with other physicians/providers. Progress Note: I discussed this patient's progress to date, current mental status, treatment process in the context of the treatment plan, and discharge planning with staff/ team in the daily morning inpatient team meeting. I also met with the patient myself in individual session. S: "I don't know what I'll do if I don't have a place to go to from here." O: Current Medications Sig/Bonny Start time Last Medication Dose Route Stop Time Status Admin Alprazolam 2 MG BID 10/30 2199 AC 11/01 PO 11/06 2159 0818 Alprazolam 1 MG 1600 10/30 1600 AC 10/31 PO 11/06 1559 1617 Aripiprazole 15 MG AT BEDTIME 10/23 2199 AC 10/31 PO 2145 Carisoprodol 350 MG BID 10/30 2199 AC 11/01 PO 0819 Divalproex Sodium 1,000 MG 11/01 DC PO Divalproex Sodium 1,000 MG 11/01 AC PO Divalproex Sodium 500 MG 10/31 2000 DC PO 10/31 2000 Divalproex Sodium 500 MG 0800,10/26 0800 DC 10/31 PO 0924 Gabapentin 400 MG TID 10/24 1600 AC 11/01 PO 0818 Ibuprofen 800 MG TIDPRN 10/21 2145 AC 10/23 PO 1620 Methadone HCl 70 MG DAILY 10/25 1000 AC 11/01 PO 0818 Nicotine 21 MG DAILY 10/24 1352 AC 11/01 TOP 0818 Prazosin HCl 1 MG AT BEDTIME 10/25 2199 AC 10/31 PO 2145 Vital Signs Date Time Temp Pulse Resp B/P B/P Pulse O2 O2 Flow FiO2 Mean Ox Delivery Rate 11/01 1231 80 126/74 11/01 0755 97.4 77 114/63 10/31 2144 98.2 82 16 134/70 10/31 2006 98.2 82 134/70 10/31 1610 88 128/75 A: Chart, progress notes, labs, VS, and medication list were reviewed. Patient declined last evening's dose of Depakote 500mg at HS for unclear reasons. Met with patient today at 1:00PM. He expressed having more energy today after eliminating Depakote BID dosing; reported morning dose made him "tired". He was agreeable to switch to Depakote ER tonight. He dreported anxiety and depression of 7/10 (10 being the worst) related to not having a place to return to. Expressed feeling frustration at the process of trying to get into residential rehabs and [facility]. Reviewed with patient that process does not always result in immediate bed availability. He verbalized understanding. He reported his sleep and appetite were good. He reported feeling hopeless and helpless over placement issue. He denied feeling worthless or guilty. He reported passive suicidal ideation, no plan or intent. He gave safety promise while on unit. Could not contract for safety outside of hospital today given no permanent placement from hospital. He denied homicidal ideation. He identified protective factors of his fiance and children. He denied NMAs, paranoid ideation. No evidence of delusions. Thought process was linear and goal- directed. Thought content was appropriate. Cognition was grossly intact. Insight and judgement limited. P: 1. Continue monitoring patient on unit for safety, suicidal ideation, and mood. 2. Start Depakote ER 1,000mg tonight for mood stabilization. Depakote 500mg BID discontinued. 3. Phone conference with pt's fiance scheduled for 2PM. 4. Continue contact with residential rehabs and C&R for possible bed availability.
--- NOTE | 2016-11-01 13:56 | SOCIAL WORKER PROG NOTE PSYCH ---
Social Work Progress Note Progress Note Pt was accepted to [facility] for they will pick him up between 10 and 11am. He needs a PPD and the results have to be faxed to . Pt is agreeable to this plan.
--- NOTE | 2016-11-01 14:35 | SOCIAL WORKER PROG NOTE PSYCH ---
Social Work Progress Note Progress Note I spoke with crisis and respite they will transport pt to and from IOP at [facility]. I faxed clinical to [facility] and requested an appointment for an IOP intake.
[2016-11-01 15:57] VITALS: BP 139/79
--- NOTE | 2016-11-01 16:56 | SOCIAL WORKER PROG NOTE PSYCH ---
Social Work Progress Note Progress Note Pt has an intake for [facility] on 11/04/16 at 9am, IOP will start immedicately.
--- NOTE | 2016-11-01 16:56 | SOCIAL WORKER PROG NOTE PSYCH ---
Social Work Progress Note Progress Note JODY RABAGO [id number] 1985 JODY RABAGO [id number] Pended Authorization # Client Authorization # Type of Request [id number] CONCURRENT Date of Admission/ Start of Services Requested From Submission Date 10/24/2016 11/01/2016 11/01/2016
--- NOTE | 2016-11-01 18:12 | IP INCIDENTAL NOTE PSYCH ---
Incidental Note Notation: Phone conference was held with the patient, his fiance, this consumer loan underwriter and Celeste Barrow LCSW. Patient's reported that the patient was not welcome to return home without further treatment. 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 His fiance was informed that presently the patient does not present clinically appropriate for long-term hospitalization and additionally is not voluntarily willing to pursue this; he is not gravely disabled, or an ongoing risk to himself or others. Patient's fiance appeared most focused on the patient not returning home while reporting this. Patient's fiance was also informed that if she was concerned that she was at risk for harm to file a restraining order. Of note, the patient rescinded passive SI after learning that a bed was available for him at [facility] C&R on morning. Patient's fiance was informed that treatment recommendation was for patient to attend Dual IOP at [facility], which the patient was agreeable to; and also for the patient to follow- up with residential referrals for rehab. Informed patient's fiance that he received a bed at [facility] for temporary housing and that patient will need to contact residential programs about their bed availability for residential drug tx during his stay there. By the end of phone conference the patient's fiance did not express any acute safety concerns regarding discharge plan or the patient upon reiterating that the patient received a placement and would not return home; both the patient and his fiance were in favor of plan for f/u at [facility], C&R, and referrals to residential rehabs.
[2016-11-01 20:35] VITALS: BP 138/71
--- NOTE | 2016-11-01 22:10 | NUR ---
PATIENT ALERT AND ORIENTED X3; CALM AND COOPERATIVE WITH STAFF; HE DENIES S/I AT THIS TIME; MOOD POSITIVE, ENCOURAGING HIS PEERS; HE ATTENDED AND PARTICIPATED GROUPS; VITAL SIGNS WNL; PATIENT TALKING ABOUT LOOKING FORWARD TO GOING TO [facility] AFTER DISCHARGE.
--- NOTE | 2016-11-02 07:05 | NUR ---
PATIENT SLEPT ALL NIGHT.
[2016-11-02 08:18] VITALS: BP 120/71
[2016-11-02 12:25] VITALS: BP 113/70
--- NOTE | 2016-11-02 13:12 | CP SOUTH PROGRESS NOTE PSYCH ---
Psych (Inpt) Progress Note Progress Note Include the following elements, when applicable: Involvement in the active treatment of the patient with behavioral observations of the patient and the patient's response to the treatment. Review of the ongoing treatment process in the context of the treatment plan. Indication of how multi-disciplinary staff members are carrying out the treatment plan. Plans for future interventions and recommendations for revision of the treatment plan. Liaison with other physicians/providers. Progress Note: I discussed this patient's progress to date, current mental status, treatment process in the context of the treatment plan, and discharge planning with staff/ team in the daily morning inpatient team meeting. I also met with the patient myself in individual session. S: "I feel good on the medications." O: Current Medications Sig/Bonny Start time Last Medication Dose Route Stop Time Status Admin Alprazolam 2 MG BID 10/30 2199 AC 11/02 PO 11/06 2159 0828 Alprazolam 1 MG 1600 10/30 1600 AC 11/01 PO 11/06 1559 1544 Aripiprazole 15 MG AT BEDTIME 10/23 2199 AC 11/01 PO 220 Carisoprodol 350 MG BID 10/30 2199 AC 11/02 PO 0827 Divalproex Sodium 1,000 MG 2000 11/01 2000 AC 11/01 PO 1958 Gabapentin 400 MG TID 10/24 1600 AC 11/02 PO 0825 Ibuprofen 800 MG TIDPRN 10/21 2145 AC 10/23 PO 1620 Methadone HCl 70 MG DAILY 10/25 1000 AC 11/02 PO 0826 Nicotine 21 MG DAILY 10/24 1352 AC 11/02 TOP 0826 Prazosin HCl 1 MG AT BEDTIME 10/25 2199 AC 11/01 PO 220 Tuberculin PPD 0.1 ML ONE TIME ONE 11/01 1400 DC 11/01 ID 11/01 1401 1451 Vital Signs Date Time Temp Pulse Resp B/P B/P Pulse O2 O2 Flow FiO2 Mean Ox Delivery Rate 11/02 1225 75 113/70 11/02 0818 97.9 79 120/71 11/01 2204 83 138/71 11/01 2035 98.3 83 138/11/01 1557 87 139/79 A: Chart, progress notes, VS, labs and medication list were reviewed. Vital signs within normal limits. No new lab results today. Met with patient individually this afternoon. He expressed tolerating Depakote ER much better than Depakote. Reported sleeping well last evening and waking up without problem. Denied NMAs. Reported his energy level was "good." Speech was normal in rate, tone and volume. Eye contact was appropriate. Mood was "overall good, a little anxious." He reported anxiety of 4/10 (10 being the worst) and depression of 3/10 (10 being the worst). He denied feeling hopeless, helpless, guilty, worthless. He denied passive and active suicidal ideation, plans, intent. Denied homicidal ideation. Denied auditory and visual hallucinations. He reported feeling positive about attending [facility] and C&R in [place], [place]. Thought process was linear and goal directed; thought content was somewhat anxious. Cognition was grossly intact. No evidence of paranoia or dario delusions. P: 1. Continue monitoring for safety, mood and suicidal ideation. 2. Continue current medications. 3. Discharge tomorrow between 10am-11am to C&R and f/u at [facility] on Monday.
--- NOTE | 2016-11-02 13:35 | NUR ---
PT IS PRESENT ON THE UNIT, NO ISSUES OR COMPLAINTS REPORTED OR OBSERVED, SOCIAL WITH PEERS AND STAFF, VSS, MOOD STABLE WITH FULL RANGE AFFECT, APPROPRIATE OVERALL, ATTENDING GROUPS AND REPORTING + SLEEP/APPETITE.
--- NOTE | 2016-11-02 14:20 | SOCIAL WORKER PROG NOTE PSYCH ---
Social Work Progress Note Progress Note Pt is stable, hopeful for placement and happy things are working out with his family. Pt continues to struggle with feelings of depression but denies si/hi/ah /vh. "This is the first time I'm really taking it seriously, I dont want to lose my family". Reviewed upcoming appointments with pt and he is agreeable to attend [facility] IOP on 11/04/16. Attempted to call [facility] twice and left voicemail to find out of when he will be seen by a prescriber.
[2016-11-02 16:26] VITALS: BP 128/69
[2016-11-02 20:04] VITALS: BP 135/94
--- NOTE | 2016-11-02 21:21 | NUR ---
PT IS VISIBLE ON UNIT, SOCIAL WITH PEERS AND STAFF. ATTENDED WRAP UP MEETING. COOPERATIVE AND COMPLIANT WITH STAFF. NO COMPLAINTS OR SI REPORTED. PT HAS A STABLE MOOD AND FULL RANGE AFFECT.
--- NOTE | 2016-11-03 06:09 | NUR ---
PT APPEARED TO SLEEP THRU THE NIGHT. NO ANGRY OUTBURSTS. PPD SHOULD BE READ TODAY.
[2016-11-03 07:54] VITALS: BP 110/77
[2016-11-03] MEDS ORDERED: NICOTINE PATCH1 EAC3 TOP (09:05)
[2016-11-03] MEDS ORDERED: MINIPRESS1 MG PO (09:06)
[2016-11-03] MEDS ORDERED: DIVALPROEX SOD500 M3 PO (09:07)
[2016-11-03] MEDS ORDERED: GABAPENTIN400 M2 PO (09:07)
[2016-11-03] MEDS ORDERED: ABILIFY15 M1 PO (09:08)
--- NOTE | 2016-11-03 09:08 | DISCHARGE SUMMARY REPORT-PSYCH ---
Visit Information Visit Dates/Diagnosis' Admission Date: 10/24/16 Discharge Date: 11/03/16 Reason for Admission: Suicide attempt by superficial cutting and plan to hang self with bathrobe belt. Psy Discharge Primary Diag: Bipolar d/o, mre depressed s/p suicide attempt. Psy Discharge Secondary Diag: PTSD; stimulant use d/o;benzodiazepine use d/o Hospital Course Significant Lab Findings: Lab Methadone Screen > 735 NG/ML H 10/29/16 1124 U Benzodiazepines Scrn > 800 NG/ML H 10/29/16 1124 Valproic Acid 47.6 ug/mL L 10/29/16 0650 Course Complications: None. Consultations: The patient was seen for admission history and physical by Dr. Hoover. Please refer to his note for additional information. Allergies: Coded Allergies: doxycycline (Severe, ANAPHYLAXIS 03/06/16) Fish Containing Products (UNKNOWN 03/06/16) cefaclor (UNKNOWN 03/06/16) codeine (UNKNONW 03/06/16) venom-honey bee (bee venom (honey bee)) (UNKNOWN 03/06/16) Hospital Course/TX Response: The patient was monitored on the unit for safety, suicidal ideation, depression and mood stability. He participated in multi-modal treatments on the unit. He was medicated with depakote for mood stability, abilify for mood stability, prazosin for nightmares. Xanax was continued as per outpatient treatment. He was also continued on methadone maintenance. Today, the day of discharge, patient presents as calm and cooperative. States that he feels that he is finally ready for rehabilitation. States he is looking forward to going to [facility] care. His came to the unit this morning for a short visit before he was brought to [facility] by their staff. States that he is concerned about his son, who is sick. Reports tolerating his medications well, without complaint. States that Depakote is helpful for mood stability, states "I haven't been crying." Depression:0/10; Anxiety:8/10 (with 10 the worst.) He said his anxiety is elevated this morning because he had not yet taken his morning medications. Denies suicidal ideation, homicidal ideation, auditory hallucinations, visual hallucinations, paranoid ideation. Patient states and also believes that he will not kill himself. Patient is forward thinking, looking forward to rehab, and to taking care of his family. Reports sleeping well last night, denies nightmares after taking prazosin. He reports having a good appetite. Speech is well articulated, goal-directed, average in rate, volume and tone. Calm, cooperative, alert and oriented 3. Logical. The patient understands the risks/benefits/side effects of the medication and is agreeable to continue taking them. Patient reports tolerating his medications well, without complaint. States he feels safe and ready for discharge. Discharge HBIPS - Tobacco Use Treatment Offered Post DC Medications Offered: Script Given-See Med List Post DC Tobacco Treatment Plan: [facility] Program Appt Date: 11/09/16 Program Appt Time: 1600 - EtOH/Drug Use D/O Treatment Offered Post DC Medications Offered: NA-No EtOH/Drug Use D/O Post DC EtOH/SubAbuse TX Plan: NA-No EtOH/Drug Use D/O Metabolic Screening - Screen if on a Neuroleptic Medication - Metabolic screening should include: - Blood Pressure, BMI, Glucose or Hgb A1c, & a - Lipid profile from within the past 365 days. Metabolic Screening () Not Applicable, patient not on a neuroleptic. OR ([x]) Patient on a neuroleptic(s) . Enter below results for Glucose or Hemoglobin A1C, and lipid panel if obtained during the last 365 days. BMI: 26.700 Blood Pressure: 110/77 Laboratory Results (If applicable): Lab Cholesterol 163 MG/DL 10/26/16 0610 Cholesterol/HDL Ratio 4 % 10/26/16 0610 Glucose 82 mg/dL 10/21/16 1942 HDL Cholesterol 44 mg/dL 10/26/16 0610 LDL Cholesterol, Calc 71 mg/dL 10/26/16 0610 Triglycerides 241 mg/dL H 10/26/16 0610 Discharge Instructions General Discharge Information Discharge Medications: Discharge Medications- (Dose, route, freq, indication): START taking these NEW Home Medications: Nicotine (Nicotine Dose: On the skin, DAILY for Qty: 1 Called in to Patch) 21 MG/24 HOUR 21 Milligram smoking cessation Refills: 0 Pharm 1 PATCH.TD24 Last Taken: 11/02/16 Time: 0800 Prazosin Dose: ORAL, AT BEDTIME for Qty: 14 Called in to Hydrochloride 1 Milligram NIGHTMARES Refills: 0 Pharm 1 (Minipress) 1 MG Last Taken: 11/02/16 CAPSULE Time: 2200 Divalproex Sodium Dose: ORAL, AT BEDTIME for Qty: 28 Called in to (Divalproex Sodium 1,000 MOOD STABILITY Refills: 0 Pharm 1 ER) 500 MG Milligram Last Taken: 11/02/16 TAB.ER.24H Time: 2000 Gabapentin Dose: ORAL, THREE TIMES DAILY Qty: 42 Called in to (Gabapentin) 400 MG 400 Milligram for SEIZURE/ANXIETY Refills: 0 Pharm 1 CAPSULE Last Taken: 11/03/16 Time: 0800 Aripiprazole Dose: ORAL, AT BEDTIME for Qty: 14 Called in to (Abilify) 15 MG 15 Milligram MOOD STABILITY/CLEAR Refills: 0 Pharm 1 TABLET THOUGHTS Last Taken: 11/02/16 Time: 2200 CONTINUE taking these Home Medications: Methadone HCl (Methadone Dose: ORAL, DAILY for HCl) 10 MG/5 ML SOLUTION 70 Milligram MAINTENCE Last Taken: 11/03/16 Time: 0800 Alprazolam (Xanax) 2 MG Dose: ORAL, THREE TIMES DAILY TABLET 2 Milligram for ANXIETY Last Taken: 11/03/16 Time: 0800 Carisoprodol (SOMA) 350 Dose: ORAL, THREE TIMES DAILY MG TABLET 350 Milligram for PAIN Last Taken: 11/03/16 Time: 0800 STOP taking these DISCONTINUED Home Medications: Gabapentin (Gabapentin) 300 MG Dose: ORAL, THREE TIMES DAILY for CAPSULE 1 Capsule UNKNOWN Reason Stopped: [facility] was [facility] 2mg #90, filled on 10/24/16 at [facility]. The patient was admitted to the ER on 10/21/2016. He states that he does not have a supply of Xanax at home. We have decided to discharge the patient with a prescription for Xanax 1mg tab, TID #21 with 1 refill, called in to the [facility] listed below. Patient has been advised to speak with his pharmacist at [facility] about the discrepency with the rx from 10/24/16. [facility] [id number] [place] [address] ([facility]) [place], [place] [phone] (Voice) Multiple Neuroleptics: (x) Not Applicable OR Document below three failed attempts at monotherapy, or a plan to taper to monotherapy, or augmentation of Clozapine. () Patient's Diet: Regular Patient's Activity: No restrictions DC Disposition: Patient will be staying at [facility] in [place]. Staff from [facility] will transport the patient from the unit to their residential facility Recommendations: Maintain sobriety. Take medications as directed. [facility] Contact: Lizzeth Lovett: [address] [place] [address]. Appointment on 11/04/2016 at 9:00am Medication management with Caty Ramsey APRN 11/09/2016 at 12:30pm. Copies To: VAMSI Jama; CATY REMY APRN
--- NOTE | 2016-11-03 10:48 | NUR ---
PT IS PRESENT ON THE UNIT, SOCIAL AND APPROPRIATE WITH PEERS AND STAFF, NO COMPLAINTS OR ISSUES REPORTED OR OBSERVED. WHEN ASKED DIRECTLY DENIES SI/HI/HALLUCINATIONS. REPORTS OVERALL IMPROVEMENT IN MOOD/BEHAVIOR AND MOTIVATED FOR F/U DISCHARGE PLAN AND SOBER LIVING. MOOD IS STABLE WITH FULL RANGE AFFECT. ALREADY MET WITH TEAM AND SCHEDULED FOR DISCHARGE TO [facility] @ [facility] 10-11AM. INFORMATION PACKET RE:DEPRESSION, SUBSTANCE ABUSE AND SI GIVEN TO PT, W-10 AND PT RESOURCE GUIDE REVIEWED WITH PT AND NO QUESTIONS AND REPORTS + UNDERSTAND RE: ALL THE ABOVE.
--- NOTE | 2016-11-03 11:37 | CP SOUTH PROGRESS NOTE PSYCH ---
Psych (Inpt) Progress Note Progress Note Progress Note: I discussed this patient's progress to date, current mental status, treatment process in the context of the treatment plan, and discharge planning with staff/ team in the daily morning inpatient team meeting. I also met with the patient myself in individual session. SUBJECTIVE: "No nightmares. I slept perfect. No suicidal thoughts." OBJECTIVE: Current Medications Sig/Bonny Start time Last Medication Dose Route Stop Time Status Admin Alprazolam 2 MG BID 10/30 2199 AC 11/03 PO 11/06 2159 0847 Alprazolam 1 MG 1600 10/30 1600 AC 11/02 PO 11/06 1559 1641 Aripiprazole 15 MG AT BEDTIME 10/23 2199 AC 11/02 PO 2145 Carisoprodol 350 MG BID 10/30 2199 AC 11/03 PO 0847 Divalproex Sodium 1,000 MG 2000 11/02 1999 AC 11/02 PO 2006 Gabapentin 400 MG TID 10/24 1600 AC 11/03 PO 0847 Ibuprofen 800 MG .STK-MED ONE 11/02 1637 DC PO 11/02 1638 Ibuprofen 800 MG TIDPRN 10/21 2145 AC 11/02 PO 1642 Methadone HCl 70 MG DAILY 10/25 1000 AC 11/03 PO 0847 Nicotine 21 MG DAILY 10/24 1352 AC 11/02 TOP 0826 Prazosin HCl 1 MG AT BEDTIME 10/250 AC 11/02 PO 2145 Vital Signs Date Time Temp Pulse Resp B/P B/P Pulse O2 O2 Flow FiO2 Mean Ox Delivery Rate 11/03 075 97.4 80 110/77 11/02 2144 135/94 11/03 2003 97.9 88 135/94 11/02 1626 86 128/69 11/02 1225 75 113/70 ASSESSMENT: Today is my first time meeting this patient. He is slated for discharge this morning. Patient presents as calm and cooperative. States that he feels that he is finally ready for rehabilitation. States he is looking forward to going to [facility]. His came to the unit this morning for a short visit before he was brought to [facility] by their staff. Reports tolerating his medications well, without complaint. States that Depakote is helpful for mood stability, states "I haven't been crying." Depression:0/10; Anxiety:8/10 (with 10 the worst.) He said his anxiety is elevated this morning because he had not yet taken his morning medications. Denies suicidal ideation, homicidal ideation, auditory hallucinations, visual hallucinations, paranoid ideation. Patient states and also believes that he will not kill himself. Reports sleeping well last night, denies nightmares after taking prazosin. He reports having a good appetite. Speech is well articulated, goal-directed, average in rate, volume and tone. Calm, cooperative, alert and oriented 3. Logical. The patient understands the risks/benefits/side effects of the medication and is agreeable to continue taking them. PLAN: At team meeting this morning, staff all agreed the patient was safe and ready for discharge. Discharged today to [facility]. IOP at [facility]. Continue with current management as patient is improving. Continue to provide support and encouragement.
--- NOTE | 2016-11-04 11:10 | IP INCIDENTAL NOTE PSYCH ---
Incidental Note Notation: Received phone call from Shruthi from [facility] in [place] who reported [facility] did not have a prescription of Xanax for the patient. Called [facility] this morning who verified prescription for Xanax 1mg TID, #21 with 1 refill was on file but had not been filled. Per pharmacist, prescription will be filled immediately. I spoke to Shruthi and informed her of the above information.
== END 2016-11-03 12:00 | DRG 753 ==
LOC: ENRESERVDT → ENRESERVTM → ERH 19:03 → CP SOUTH 10-24 09:46 → ERHI 10-24 09:46 → CP SOUTH 10-24 12:29
PROVIDERS: Pediatrics; Registered Nurse Psychiatric/Mental Health; ADMIT Psychiatry & Neurology Psychiatry
DX: F31.9 Bipolar disorder, unspecified (principal); F43.10 Post-traumatic stress disorder, unspecified; F15.10 Other stimulant abuse, uncomplicated
CPT/HCPCS: 36415; 80307; 93005; 93010; G0463; G0480; Q2036

== ENCOUNTER 2017-01-26 19:50 | Inpatient (IN) | payer OTHER ==
[~2017-01-26] VITALS: Ht 172.7 cm; Wt 83.9 kg
[~2017-01-26 19:50] MED LIST changes: +DIVALPROEX SOD500 M3 PO; +GABAPENTIN400 M2 PO; +MINIPRESS1 MG PO; +NEURONTIN300 M1 PO; +NICOTINE PATCH1 EAC3 TOP; +SOMA350 M1 PO; +XANAX2 M1 PO
--- NOTE | 2017-01-26 20:05 | NUR ---
PT [place] IN [employer]. PT WAS BEING BOOKED AND 40 MIN INTO PROCESS PT STATED THAT HE HAD SOB AND DIFF BREATHING.. ON ARRIVAL TO ER PT STATES THAT HE HAS C/P 7/10 AND SOB AND THAT THE PAIN RADIATES TO HIS LEFT SIDE FEELING LIKE HE IS BEING STABBED. PT ALSO STATES THAT HE DOES NOT WANT TO LIVE ANYMORE... PT STATES "TO BE HONEST I WAS GOING TO HANG MYSELF IN THE CELL"
[2017-01-26] MEDS ORDERED: DIVALPROEX SOD500 M3 PO (20:12)
[2017-01-26] MEDS ORDERED: GABAPENTIN600 M1 PO (20:12)
[2017-01-26] MEDS ORDERED: HYDROXYZINE PAM25 M2 PO (20:13)
--- NOTE | 2017-01-26 20:24 | NUR ---
DR SCHOFIELD AT BEDSIDE FOR EVAL
--- NOTE | 2017-01-26 20:28 | ED PSYCHIATRIC COMPLAINT ---
See Addendum History of Present Illness General Chief Complaint: General Adult Stated Complaint: ANXIETY Source: patient, old records, police Exam Limitations: no limitations Vital Signs & Intake/Output Vital Signs & Intake/Output Vital Signs Date Time Temp Pulse Resp B/P B/P Pulse O2 O2 Flow FiO2 Mean Ox Delivery Rate 01/27 0640 97.1 89 20 101/59 98 Room Air 01/26 2230 98.7 84 16 124/74 94 Room Air 01/26 2006 Room Air 01/26 1953 98.7 90 22 124/80 98 Room Air ED Intake and Output 01/27 0000 01/26 1200 Intake Total Output Total Balance Patient 185 lb Weight Weight Reported by Patient Measurement Method Allergies Coded Allergies: doxycycline (Severe, ANAPHYLAXIS 03/06/16) Fish Containing Products (HIVES 01/26/17) cefaclor (ANAPHYLAXIS 01/26/17) codeine (UNKNOWN PER PT 01/26/17) venom-honey bee (bee venom (honey bee)) (ANAPHYLAXIS 01/26/17) Reconcile Medications Alprazolam (Xanax) 2 MG TABLET 2 MG PO TID ANXIETY (Reported) Aripiprazole (Abilify) 15 MG TABLET 15 MG PO AT BEDTIME MOOD STABILITY/CLEAR THOUGHTS Carisoprodol (SOMA) 350 MG TABLET 350 MG PO TID PAIN (Reported) Divalproex Sodium (Divalproex Sodium ER) 500 MG TAB.ER.24H 1,500 MG PO DAILY MENTAL HEALTH/SEIZURES (Reported) Gabapentin 600 MG TABLET 1 TAB PO TID MENTAL HEALTH/SEIZURES (Reported) Hydroxyzine Pamoate 25 MG CAPSULE 1 CAP PO 4XDAILY ANXIETY (Reported) Methadone HCl 10 MG/5 ML SOLUTION 70 MG PO DAILY MAINTENCE (Reported) Nicotine (Nicotine Patch) 21 MG/24 HOUR PATCH.TD24 21 MG TOP DAILY smoking cessation Prazosin Hydrochloride (Minipress) 1 MG CAPSULE 1 MG PO AT BEDTIME NIGHTMARES Triage Note: PT [place] IN [employer]. PT WAS BEING BOOKED AND 40 MIN INTO PROCESS PT STATED THAT HE HAD SOB AND DIFF BREATHING.. ON ARRIVAL TO ER PT STATES THAT HE HAS C/P 7/10 AND SOB AND THAT THE PAIN RADIATES TO HIS LEFT SIDE FEELING LIKE HE IS BEING STABBED. PT ALSO STATES THAT HE DOES NOT WANT TO LIVE ANYMORE... PT STATES "TO BE HONEST I WAS GOING TO HANG MYSELF IN THE CELL" Triage Nurses Notes Reviewed? yes Onset: Just prior to arrival Duration: hour(s):, constant, continues in ED Timing: recent history Severity: moderate, severe Associated Symptoms: anxiety, insomnia, suicidal ideation HPI: Prior to admission patient was arrested for violation of restraint order. While he was being processed he developed left-sided sharp constant nonradiating chest pain worse with movement breathing similar in quality previous chest pain from rib injury and surgery associated with shortness of breath dizziness nausea. He also complains of anorexia insomnia depression with thoughts of hanging himself in fdc. He denies fever chills vomiting diarrhea dysuria rash bleeding homicidal ideation hallucination. (REECE SCHOFIELD MD) Past History Travel History Traveled to [place] past 21 day No Medical History Any Pertinent Medical History? see below for history Neurological: seizure EENT: NONE Cardiovascular: NONE Respiratory: NONE Gastrointestinal: NONE Hepatic: NONE Renal: NONE Musculoskeletal: NONE Psychiatric: anxiety, bipolar disease, PTSD DEPRESSION1 Endocrine: NONE Blood Disorders: NONE Cancer(s): NONE Surgical History Surgical History: none Psychosocial History Who do you live with Family What is your primary language Mongolian Tobacco Use: Current Daily Use Daily Tobacco Use Amount/Type: => 5 Cigarettes daily Family History Hx Contributory? No (REECE SCHOFIELD MD) Review of Systems Review of Systems Constitutional: Reports: no symptoms. EENTM: Reports: no symptoms. Respiratory: Reports: see HPI, short of breath. Cardiovascular: Reports: see HPI, chest pain. GI: Reports: see HPI, nausea. Genitourinary: Reports: no symptoms. Musculoskeletal: Reports: no symptoms. Skin: Reports: no symptoms. Neurological/Psychological: Reports: see HPI, anxiety, depressed, emotional problems. Hematologic/Endocrine: Reports: no symptoms. Immunologic/Allergic: Reports: no symptoms. All Other Systems: Reviewed and Negative (REECE SCHOFIELD MD) Physical Exam Physical Exam General Appearance: well developed/nourished, alert, awake, anxious, moderate distress Head: atraumatic, normal appearance Eyes: Bilateral: normal appearance, PERRL, EOMI. Ears, Nose, Throat: normal pharynx, normal ENT inspection, hearing grossly normal Neck: normal inspection, supple, full range of motion Respiratory: normal breath sounds, no respiratory distress, L chest wall tenderness Cardiovascular: regular rate/rhythm, normal peripheral pulses, norml femoral pulses equa Gastrointestinal: normal bowel sounds, soft, non-tender, no organomegaly Extremities: normal range of motion, no ligament instability Neurological/Psychiatric: no motor/sensory deficits, awake, alert, anxious, information technology account manager II-XII nml as tested, oriented x 3 Appearance/Memory/Insight: disheveled, impaired insight Behavoir/Eye Contact/Speech: cooperative, normal speech Thoughts/Hallucinations: no apparent hallucination Skin: intact, normal color, warm/dry SAD PERSONS SAD PERSONS Response Value Male Sex? yes 1 Depression/Hopelessness? yes 2 Previous Attempts/Psych Care yes 1 Rational Thinking Loss? yes 2 Single//? yes 1 Social Support? has support 0 Stated Future Intent? yes 2 Total 9 SAD PERSONS Done? yes (CHANDU WELLINGTON,REECE) Progress Differential Diagnosis: drug intoxication, drug overdose, drug withdrawal, electrolyte abnormality, hypoglycemia Plan of Care: Orders Procedure Date/time Status Regular Diet 01/27 B Active Continuous Observation Monitor 01/27 425 Active Continuous Observation Monitor 01/27 0025 Active DEPAKOTE LEVEL 01/27 2032 Complete URINE DRUG SCREEN FOR ER ONLY 01/26 2026 Complete TROPONIN LEVEL 01/26 2026 Complete ETHANOL 01/26 2026 Complete COMPREHENSIVE METABOLIC PANEL 01/26 2026 Complete CBC WITHOUT DIFFERENTIAL 01/26 2026 Complete ED CRISIS PSYCH CONSULT 01/26 2026 Active Continuous Observation Monitor 01/26 2025 Active EKG 01/26 2007 Active Current Medications Sig/Bonny Start time Last Medication Dose Stop Time Status Admin Divalproex Sodium 1,500 MG DAILY 01/27 1000 UNVr (Depakote ER) Aripiprazole 15 MG AT BEDTIME 01/26 2200 UNVr 01/26 (Abilify) 2233 Carisoprodol 350 MG TID 01/26 2200 UNVr 01/26 (Soma) 223 Gabapentin 600 MG Q8 01/26 2200 UNVr 01/27 (Neurontin) 726 Hydroxyzine HCl 25 MG 4 TIMES/DAY 01/26 2200 UNVr 01/26 (Atarax) 2233 Prazosin HCl 1 MG AT BEDTIME 01/26 2200 UNVr 01/26 (Minipress 1 MG) 223 Alprazolam 2 MG TIDPRN PRN 01/26 2030 AC 01/27 (Xanax) 02/02 2029 1018 Laboratory Tests 01/26/172125: Urine Opiates Screen < 100.00, Methadone Screen > 735 H, Barbiturate Screen 68, Ur Phencyclidine Scrn 7.20, Amphetamines Screen > 1450 H, U Benzodiazepines Scrn > 800 H, Urine Cocaine Screen < 50, Urine Cannabis Screen 5.30 01/26/172031: Anion Gap 12, Estimated GFR > 60, BUN/Creatinine Ratio 21.0, Glucose 82, Calcium 9.6, Total Bilirubin 0.8, AST 20, ALT 27, Alkaline Phosphatase 47, Troponin I < 0.01, Total Protein 7.6, Albumin 4.7, Globulin 2.9, Albumin/Globulin Ratio 1.6, CBC w Diff NO MAN DIFF REQ, RBC 5.71, MCV 87.0, MCH 28.7, RDW 14.4, MPV 8.3, Gran % 51.8, Lymphocytes % 33.4, Monocytes % 9.3, Eosinophils % 5.2 H, Basophils % 0.3, Absolute Granulocytes 5.1, Absolute Lymphocytes 3.3, Absolute Monocytes 0.9 H, Absolute Eosinophils 0.5, Absolute Basophils 0, PUBS MCHC 33.0 , Valproic Acid 85.7, Serum Alcohol < 10.0 01/26/172030: Valproic Acid Cancelled Hand-Off Endorsed To: CYNTHIA BRAND DO Endorsed Time: 0700 Pending: consult (REECE SCHOFIELD MD) Departure Departure Disposition: STILL A PATIENT Condition: Stable Clinical Impression Primary Impression: Depression with suicidal ideation Secondary Impressions: Chest wall pain, chronic Referrals: ADRIANA WELLINGTON,CURTIS Mckeon (PCP/Family) Departure Forms: Customer Survey General Discharge Information (REECE SCHOFIELD MD) Departure Comments 01/27/17 11 AM The patient was signed out to me by Dr. Schofield at 7 AM. He is pending evaluation by crisis. (CYNTHIA BRAND DO)
--- NOTE | 2017-01-26 20:35 | NUR ---
BLOOD DRAWN AND SENT TO [facility] PINK GOLD LAV TUBES COLLECTED
[2017-01-26 20:44] LABS: ABSOLUTE BASOPHIL COUNT 0 /CUMM (0.0-0.2); ABSOLUTE EOSINOPHIL COUNT 0.5 /CUMM (0.0-0.7); ABSOLUTE GRANULOCYTE CT 5.1 /CUMM (1.4-6.5); ABSOLUTE LYMPH COUNT 3.3 /CUMM (1.2-3.4); ABSOLUTE MONOCYTE COUNT 0.9 /CUMM (0.10-0.60); BASOPHIL % 0.3 % (0.0-2.0); EOSINOPHIL % 5.2 % (0-5); GRANULOCYTE % 51.8 % (42.2-75.2); HEMATOCRIT 49.7 % (42-52); MEAN CORPUSCULAR HGB 28.7 PG (27.0-31.0); MEAN PLATELET VOLUME 8.3 FL (7.4-10.4); PLATELET COUNT 200 /CUMM (130-400); RBC DISTRIBUTION WIDTH 14.4 % (11.5-14.5); RED BLOOD CELL CT 5.71 /CUMM (4.70-6.10); WHITE BLOOD CELL COUNT 9.8 /CUMM (4.8-10.8)
--- NOTE | 2017-01-26 20:47 | NUR ---
PT MEDICATED WITH XANAX 2MG FOR ANXIETY AND NICOTINE PATCH 21MG APPLIED TO PT'S RUE. PT PROVIDED WITH BOXED LUNCH AND JUICES. SITTER AND PD AT BEDSIDE.
--- NOTE | 2017-01-26 21:10 | ED PSY CRISIS COLLATERAL NOTE ---
Collateral Note Collateral Note Family/Inform/Armen Contacts: SW spoke to the patients edilmaJaclyn hurst Matthew ([phone]). Jaclyn notes that the patient was arrested for Disorderly Conduct and had court today, which resulted in him not being allowed to be at her house. Jaclyn notes that he was at her house and that is why he was rearrested. Jaclyn reports that the patient has had mental health issues for many years and that she has told him if he does not get help, that they can no longer be together. Jaclyn notes that he has been saying he wants to hurt himself, secondary to their relationship issues. Jaclyn also notes that the patient has been making homicidal statements against her ex. Jaclyn believes that he needs to be re- hospitalized at this time. She would like to be contacted once there is a treatment plan.
--- NOTE | 2017-01-26 21:27 | NUR ---
PTS URINE COLLECTED AND SENT TO LAB [facility] CLEAR RED/YEL TUBES SENT
--- NOTE | 2017-01-26 21:52 | NUR ---
Crisis consult received, however the patients labs are still pending and therefore will be held over for evaluation in the AM. The patient is aware of the plan and in agreement. NARCISO spoke with the police academy instructor that is sitting with him to inform him of the plan. The officer states that there will continue to be an officer sitting with him, as he is in police custody. Case discussed with CARMELINA Kumar, Dr. Alexandra and Dr. De Anda.
--- NOTE | 2017-01-26 22:10 | NUR ---
PHARMACY CALLED FOR [facility] MEDS
--- NOTE | 2017-01-26 22:34 | NUR ---
PT MEDICATED WITH [facility] MED[facility] PER EMAR PT EATING SANDWICH WHILE ONE WRIST CUFFED TO STRETCHER SITTER AND PD OFFICER AT BEDSIDE
--- NOTE | 2017-01-27 02:51 | NUR ---
POLICE REMAIN IN VACINITY OF PT, UP AD JENY TO BR, SITTER IN PLACE
--- NOTE | 2017-01-27 04:00 | NUR ---
PATIENT SLEEPING AT THIS TIME W/ REGULAR RESPIRATIONS NOTED. SITTER AND PD REMAIN W/ PATIENT. AWAITING INITIAL CRISIS EVAL IN AM.
--- NOTE | 2017-01-27 06:43 | NUR ---
PT INFORMED THAT BREAKFAST WILL ARRIVE AT 0700. PTS VSS, SITTER IN PLACE FOR SAFETY, OFFICER IN PLACE FOR PTS AND STAFF SAFETY.
--- NOTE | 2017-01-27 07:27 | NUR ---
PT AWAKE, ALERT, CALM AND COOPERATIVE THIS AM, MED WITH AM NEURONTIN 600MG PO, TOLERATED VERY WELL. POLICE AND SITTER REMAINS AT BEDSIDE.
--- NOTE | 2017-01-27 08:00 | NUR ---
CRISIS AT BEDSIDE FOR EVAL.
--- NOTE | 2017-01-27 08:28 | ED PSYCH CRISIS CONSULTATION ---
See Addendum Crisis Consult Basic Assessment Date of Consult: 01/27/17 Responsible Person/Accompanied By: self, in police custody Insurance Authorization: Insurance #1: Insurance name: SID LAGUNAS Phone number: Policy number: [id number] Group number: Authorization number: ED Provider: Patient's ED Provider: REECE SCHOFIELD MD Primary Care Physician: Patient's PCP: CURTIS WRIGHT MD PCP's Current Psychiatrist: [facility] Chief Complaint: General Adult Patient's Quote: "I just can't handle things anymore. I want to ." Present Illness: Pt is a 31yo male who was brought in to the ED on a police paper for SI with plan to hang himself. He is currently in police custody because he got arrested for violating a protective order.His fiance has a partial protective order due to disorderly conduct. He is allowed to have contact with her but he is not allowed to be at the home. Yesterday was his son's birthday and he brought a birthday cake to the home and then was arrested. Pt presents a severely depressed and unable to stop crying. Pt continues to express SI with plan to hang himself. Pt expresses that he has been having worsening SI for about 1 month and cut his wrist a few weeks ago. Additionally he reports that he has been taking large amounts of diet pills in order to hurt himself. Pt has previous suicide attempts by cutting and attempting to hang himself but the rope broke. Pt has a dx of Bipolar disorder and is in out pt tx at [facility]. Pt has also had multiple inpt psych admits at various places including [facility] and [facility]. He was most recently treated on an inpt psych unit at [facility] ([facility]) in October 2016. When he was discharged from [facility], he went to [facility] and then to [facility]. He was discharged this past Monday. Pt was in methadone tx at [facility] in [place], but has not been there for 5 days and has been taking methadone off the street 60-70mg daily. Pt UDS is positive for methadone, benzos and amphetamines. Pt says that he is prescribed the benzos for the past 5 years for his anxiety. Pt says he thinks the amphetamines are likely from the diet pills he has been taking. in the past pt has also been positive for cocaine, but he reports that he has maintained his sobriety from crack since his admission to [facility] in October. crisis also spoke with Pt's andrew please see collateral note. She has expressed concern for his safety and would like him to get help. Case reviewed with Dr. De Anda of psychiatry and pt requires inpt psych tx. There is no bed availability on [facility] so a beds search will be done. The police is waiting to hear back from the ahsan to determine if pt will be released for inpt psych tx and then the inpt psych unit would need to notify them when pt is discharged. Patient's Address: [address] [place] [address] Other Phone Number: Who Do You Live With? Family Family/Informants Interviewed: andrew Allergies - Coded Allergies: doxycycline (Severe, ANAPHYLAXIS 03/06/16) Fish Containing Products (HIVES 01/26/17) cefaclor (ANAPHYLAXIS 01/26/17) codeine (UNKNOWN PER PT 01/26/17) venom-honey bee (bee venom (honey bee)) (ANAPHYLAXIS 01/26/17) Current Medications - Scheduled Medications Alprazolam (Xanax) 2 MG TABLET 2 MG PO TID ANXIETY (Reported) Entered as Reported by ASHLEIGH PARRISH on 10/24/16 1329 Last Taken: At an unknown date and time Aripiprazole (Abilify) 15 MG TABLET 15 MG PO AT BEDTIME MOOD STABILITY/CLEAR THOUGHTS #14 TAB Prescribed by WESLEY HICKS APRN on 11/03/16 Last Taken: Unknown Dose at an unknown date and time Carisoprodol (SOMA) 350 MG TABLET 350 MG PO TID PAIN (Reported) Entered as Reported by ASHLIEGH PARRISH on 10/24/16 1330 Divalproex Sodium (Divalproex Sodium ER) 500 MG TAB.ER.24H 1,500 MG PO DAILY MENTAL HEALTH/SEIZURES (Reported) Entered as Reported by BRI MCINTOSH on 01/26/172011 Gabapentin 600 MG TABLET 1 TAB PO TID MENTAL HEALTH/SEIZURES (Reported) Entered as Reported by BRI MCINTOSH on 01/26/172011 Hydroxyzine Pamoate 25 MG CAPSULE 1 CAP PO 4XDAILY ANXIETY #42 (Reported) Entered as Reported by BRI MCINTOSH on 01/26/172012 Methadone HCl 10 MG/5 ML SOLUTION 70 MG PO DAILY MAINTENCE (Reported) Entered as Reported by DONNIE TEE on 03/07/16 1204 Nicotine (Nicotine Patch) 21 MG/24 HOUR PATCH.TD24 21 MG TOP DAILY smoking cessation #1 PATCH Prescribed by WESLEY HICKS APRN on 11/03/16 Last Taken: At an unknown date and time Prazosin Hydrochloride (Minipress) 1 MG CAPSULE 1 MG PO AT BEDTIME NIGHTMARES #14 CAP Prescribed by WESLEY HICKS APRN on 11/03/16 Last Taken: Unknown Dose at an unknown date and time Laboratory Results: Laboratory Tests 01/26/172125: Urine Opiates Screen < 100.00, Methadone Screen > 735 H, Barbiturate Screen 68, Ur Phencyclidine Scrn 7.20, Amphetamines Screen > 1450 H, U Benzodiazepines Scrn > 800 H, Urine Cocaine Screen < 50, Urine Cannabis Screen 5.30 01/26/172031: Anion Gap 12, Estimated GFR > 60, BUN/Creatinine Ratio 21.0, Glucose 82, Calcium 9.6, Total Bilirubin 0.8, AST 20, ALT 27, Alkaline Phosphatase 47, Troponin I < 0.01, Total Protein 7.6, Albumin 4.7, Globulin 2.9, Albumin/Globulin Ratio 1.6, CBC w Diff NO MAN DIFF REQ, RBC 5.71, MCV 87.0, MCH 28.7, RDW 14.4, MPV 8.3, Gran % 51.8, Lymphocytes % 33.4, Monocytes % 9.3, Eosinophils % 5.2 H, Basophils % 0.3, Absolute Granulocytes 5.1, Absolute Lymphocytes 3.3, Absolute Monocytes 0.9 H, Absolute Eosinophils 0.5, Absolute Basophils 0, PUBS MCHC 33.0 , Valproic Acid 85.7, Serum Alcohol < 10.0 01/26/172030: Valproic Acid Cancelled Past History Past Medical History Neurological: seizure EENT: NONE Cardiovascular: NONE Respiratory: NONE Gastrointestinal: NONE Hepatic: NONE Renal: NONE Musculoskeletal: NONE Psychiatric: anxiety, bipolar disease, PTSD DEPRESSION1 Endocrine: NONE Blood Disorders: NONE Cancer(s): NONE Past Surgical History Surgical History: 1 Psychosocial History Strengths/Capabilities: The patient does have good insight into his need for treatment and is motivated to attend. Physical Limitations (Interventions): chronic back pain Psychiatric Treatment History Psych Treatment Psychiatric Treatment Yes Inpatient Treatment Yes Outpatient Treatment Yes Location of Treatment [facility] Reason for Treatment Bipolar Dates of Treatment multiple Response to Treatment variable Diagnosis by History: Bipolar, Anxiety, PTSD Substance Use/Abuse History Drug Use/Abuse Substances Used/Abused Yes Substance Used/Abused Other (list in comments) (see summary) Substance Abuse Treatment Substance Abuse Treatment Past Substance Abuse [place] Yes Inpatient Treatment No Outpatient Treatment No Location of Treatment [facility] Reason for Treatment opiate use Dates of Treatment 2017 Response to Treatment variable Current Mental Status Mental Status Orientation: Person, Place, Situation Affect: Depressed, Hopeless, Sad Speech: WNL Neuro-vegetative: Anhedonia, Appetite Decreased, Concentration Poor, Energy Decreased, Helpless, Loss of Interest, Sleep Disturbance Appearance Appearance- Dress/Hygiene: well groomed, crying Behaviors Thought Process: WNL Thought Content: WNL Memory: WNL Insight: WNL SI/HI Risk Assessment Past Suicidal Ideation/Attempts Yes Current Suicidal Ideation/Att Yes Past Homicidal Ideation/Att: No Current Homicidal Ideation/Attempts No Degree of Intent: Plan, States Intent Danger To: Self Gravely Disabled: Poor Impulse Control Risk Factors: access to lethal means, high anxiety/distress, history of suicide atmpts, SA/MH hospitalized, substance abuse, poor impulse control, male, limited support Lethality Ratin (most severe) PTSD Checklist PTSD Done? 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
--- NOTE | 2017-01-27 10:31 | NUR ---
PT ASKING FOR METHADONE DOSE, [facility] ([facility]) [phone], SPOKE WITH MEDICATION NURSE, PT WAS LAST SEEN ON January (70MG), BUT HAS NOT BEEN THERE FOR 11 DAYS AND HAS BEEN DISCHARGED FROM THIS PROGRAM.
--- NOTE | 2017-01-27 11:03 | NUR ---
AM MEDS GIVEN ORDERED, MED WITH XANAX 2MG PO FOR C/O ANXIETY, PT UPDATED REGARDING CONVERSATION WITH IAN POSADAS NURSE/KOBI'D FROM METHADONE PROGRAM.
--- NOTE | 2017-01-27 11:53 | NUR ---
REPORT CALLED TO CPS NURSE MELANIE. SECURITY AT BEDSIDE FOR TRANSFER TO CPS AT THIS TIME. 1 BELONGINGS BAG WITH PT, NO VALUABLES NOTED IN SAFE.
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
[2017-01-27 13:02] VITALS: BP 103/60
--- NOTE | 2017-01-27 15:16 | NUR ---
patient was brought down to [facility] ED at 12:25, A&O X 3, compliant with admission process and procedure. Patient is admitted with diagnosis with Bipolar Depressive Type with Suicidal Ideation. Patient appears fatigue or loss of energy, report problem with sleep, endores emptiness and hopelessness, mood and affect are depressed but very compliant and cooperative, commmunication process is coherent and organized. patient demonstrated good insight of his mental illness and addiction problem and he is motivated for treatment and have contracted for safety. Patient denies thought of self-harm and to someone else.
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
--- NOTE | 2017-01-27 19:01 | NUR ---
PT IS COOPERATIVE WITH STAFF AND PEERS, AND COMPLIANT WITH UNIT RULES. SPENDING TIME IN PT ROOM SLEEPING FOR PERIODS. WHEN ENTERING [place] PT SPENDS THE MAJORITY OF THE TIME IN PERIPHERY - LIMITED INTERCATION WITH OTHERS. CAN APPEARS ANXIOUS AT TIMES. MOOD IS STABLE, AFEFCT APPEARS EUTHYMIC TO FULL RANGE, COMMUNICATION IS ORGANIZED AND APPEARS NORMAL IN ALL RESPECTS, AND APPETITE IS NORMAL.
[2017-01-27 19:56] VITALS: BP 108/62
--- NOTE | 2017-01-28 07:47 | NUR ---
PATIENT SLEPT ALL NIGHT.
[2017-01-28 08:26] VITALS: BP 112/81
[2017-01-28 12:34] VITALS: BP 104/62
--- NOTE | 2017-01-28 13:10 | CP SOUTH PROGRESS NOTE PSYCH ---
Psych (Inpt) Progress Note Progress Note Include the following elements, when applicable: Involvement in the active treatment of the patient with behavioral observations of the patient and the patient's response to the treatment. Review of the ongoing treatment process in the context of the treatment plan. Indication of how multi-disciplinary staff members are carrying out the treatment plan. Plans for future interventions and recommendations for revision of the treatment plan. Liaison with other physicians/providers. Progress Note: Patient seen chart reviewed d/w nursing staff NO overngiht events slep thru the night. med compliant no se reported. he reports feeling the same depressed denies si and feels safe here. rates depression as 7/10, having cravings for nicotine. CF, tattooed, cooperative fair eye contact. no pmr/pma. Soft slow speach. depressed mood congruent tearful/dysphoric affect. linear goal directed. denies si/hi or psychosis. i/j limited a/p bp depression, ptsd will add nicotine gum, no other changes
--- NOTE | 2017-01-28 13:32 | NUR ---
PT IS COMPLIANT AND COOPERATIVE WITH UNIT RULES. PT IS OUT IN THE COMMUNITY ITNERACTING AT TIMES WITH STAFF AND PEERS. PT IS A LITTLE WITHDRAWN, KEEPING TO SELF. PT MOOD IS STABLE WITH A EUYTHMIC AFFECT. PT DENIES SI THOUGHTS. PT IS ATTENDING GROUPS
[2017-01-28 16:05] VITALS: BP 114/63
[2017-01-28 20:11] VITALS: BP 103/64
--- NOTE | 2017-01-28 21:38 | NUR ---
PT EXPRESSED FEELING IRRITABLE ABOUT THE SITUATION REGARDING HIS . PT ALSO REPORTED FEELING ANXIOUS ABOUT POSSIBLY GOING TO DETENTION AFTER DC. STAFF ENCOURAGED HIM TO TAKE IT ONE DAY AT A TIME. PT HAS DENIED ANY THOUGHTS OF SI WHEN ASKED BY STAFF.
--- NOTE | 2017-01-29 07:18 | NUR ---
PATIENT SLEPT ALL NIGHT.
[2017-01-29 07:50] VITALS: BP 115/70
--- NOTE | 2017-01-29 08:04 | History & Physical ---
General Information and HPI MD Statement: I have seen and personally examined JODY RABAGO and documented this H&P. Source of Information: patient History of Present Illness: 31-year-old male was initially arrested for violating a protective order and then began making suicidal comments sodium was brought to the emergency room under police custody for evaluation. Admitted to the inpatient psychiatric service. Offers no medical complaints at this time. 12 point review of system negative including denial of complaints of chest pain, shortness of breath, palpitations, headache, nausea vomiting, abdominal pain, diarrhea or constipation Allergies/Medications Allergies: Coded Allergies: doxycycline (Severe, ANAPHYLAXIS 03/06/16) Fish Containing Products (HIVES 01/26/17) cefaclor (ANAPHYLAXIS 01/26/17) codeine (UNKNOWN PER PT 01/26/17) venom-honey bee (bee venom (honey bee)) (ANAPHYLAXIS 01/26/17) Home Med list Alprazolam (Xanax) 2 MG TABLET 2 MG PO TID ANXIETY (Reported) Aripiprazole (Abilify) 15 MG TABLET 15 MG PO AT BEDTIME MOOD STABILITY/CLEAR THOUGHTS Carisoprodol (SOMA) 350 MG TABLET 350 MG PO TID PAIN (Reported) Divalproex Sodium (Divalproex Sodium ER) 500 MG TAB.ER.24H 1,500 MG PO DAILY MENTAL HEALTH/SEIZURES (Reported) Gabapentin 600 MG TABLET 1 TAB PO TID MENTAL HEALTH/SEIZURES (Reported) Hydroxyzine Pamoate 25 MG CAPSULE 1 CAP PO 4XDAILY ANXIETY (Reported) Methadone HCl 10 MG/5 ML SOLUTION 70 MG PO DAILY MAINTENCE (Reported) Nicotine (Nicotine Patch) 21 MG/24 HOUR PATCH.TD24 21 MG TOP DAILY smoking cessation Prazosin Hydrochloride (Minipress) 1 MG CAPSULE 1 MG PO AT BEDTIME NIGHTMARES Past History Travel History Traveled to [place] past 21 day No Medical History Neurological: seizure EENT: NONE Cardiovascular: NONE Respiratory: NONE Gastrointestinal: NONE Hepatic: NONE Renal: NONE Musculoskeletal: NONE Psychiatric: anxiety, bipolar disease, PTSD DEPRESSION1 Endocrine: NONE Blood Disorders: NONE Cancer(s): NONE History of MRSA: No History of VRE: No History of CDIFF: No Isolation History: Standard Surgical History Surgical History: none Past Family/Social History Psychosocial History Where do you live? Home Review of Systems Review of Systems Constitutional: Reports: see HPI. Exam & Diagnostic Data Last 24 Hrs of Vital Signs/I&O Vital Signs Date Time Temp Pulse Resp B/P B/P Pulse O2 O2 Flow FiO2 Mean Ox Delivery Rate 01/29 0750 97.0 76 115/70 01/28 2123 103/64 01/28 2011 98.0 66 103/64 01/28 1605 76 114/63 01/28 1234 74 104/62 01/28 0826 95.6 68 112/81 Physical Exam General Appearance Alert, Oriented X3, Cooperative, No Acute Distress Skin No Rashes, No Breakdown, No Significant Lesion HEENT Atraumatic, PERRLA, EOMI, Mucous Membr. moist/pink Neck Supple Cardiovascular Regular Rate, Normal S1, Normal S2, No Murmurs Lungs Clear to Auscultation, Normal Air Movement Abdomen Normal Bowel Sounds, Soft, No Tenderness Neurological Cranial Nerves II through XII: WNL Assessment/Plan Assessment: 31-year-old male with history of substance abuse, depression admitted for suicidal ideation to the inpatient psychiatry service. Offers no medical complaints at this time. Seen for routine physical. No further medical input at this time. Please recall the medical service as needed. As Ranked By This Provider Problem List: 1. Suicidal ideation Miscellaneous Miscellaneous Documentation Attending Case Discussed With: AMANDA WELLINGTON,CARL Caruso Primary Care Physician: ADRIANA WELLINGTON,CURTIS Mckeon Patient sees these Specialists None Level of Patient Care: QUEENIE Agrawal
[2017-01-29 12:04] VITALS: BP 113/66
--- NOTE | 2017-01-29 13:08 | NUR ---
PT IS COMPLIANT AND COOPERATIVE WITH UNIT RULES. PT IS OUT IN THE COMMUNITY SPENDING A LOT OF TIME ON THE PHONE AND SITTING ALONE IN THE LOUNGE. PT HAS MINIMAL INTERACTION WITH STAFF AND PEERS. PT MOOD IS STABLE WITH A CONSTRIACTED AFFECT. PT REPORTS ANXIETY FROM NOT KNOWING HIS DISCAHRGE PLANS. PT DENIES SI THOUGHTS.
--- NOTE | 2017-01-29 13:50 | CP SOUTH PROGRESS NOTE PSYCH ---
Psych (Inpt) Progress Note Progress Note Include the following elements, when applicable: Involvement in the active treatment of the patient with behavioral observations of the patient and the patient's response to the treatment. Review of the ongoing treatment process in the context of the treatment plan. Indication of how multi-disciplinary staff members are carrying out the treatment plan. Plans for future interventions and recommendations for revision of the treatment plan. Liaison with other physicians/providers. Progress Note: Patient seen chart reviewed d/w nursing staff, no overnight events. she reports having FB but denies NM, slept oka but reports ondoing depression and anxiety "i feel really down" she reports being unable to get in touch with GF and this is causing him to worry. he denies si/hi or psychosis. med compliant no se reported. CM, tattooed, casually dressed and groomed +PMR. cooperative soft slow speech limited eye contact. depressed anxious mood congruent affect. linear denies si/ hi or psychosis. I/J limited a/p BD ptsd will add daytime prazosin for daytime ptsd sx will also change xanaxn to klonopin per his request "it last longer" no other changes
[2017-01-29 20:15] VITALS: BP 127/65
--- NOTE | 2017-01-29 20:57 | NUR ---
Patient present on the unit. Appetite good. Speech clear and coherent. Patient isolating while out on the unit, visibly preoccupied. Patient appetite good. Denies SI/HI/AH/VH. Sullen affect, quiet. Patient is medication compliant and able to verbalize need for PRN's when needed.
[2017-01-30 08:06] VITALS: BP 110/69
--- NOTE | 2017-01-30 08:48 | CP SOUTH PROGRESS NOTE PSYCH ---
Psych (Inpt) Progress Note Progress Note Include the following elements, when applicable: Involvement in the active treatment of the patient with behavioral observations of the patient and the patient's response to the treatment. Review of the ongoing treatment process in the context of the treatment plan. Indication of how multi-disciplinary staff members are carrying out the treatment plan. Plans for future interventions and recommendations for revision of the treatment plan. Liaison with other physicians/providers. Progress Note: I discussed this patient's progress to date, current mental status, treatment process in the context of the treatment plan, and discharge planning with staff/ team in the daily morning inpatient team meeting. I also met with the patient myself in individual session. Current Medications Sig/Bonny Start time Last Medication Dose Route Stop Time Status Admin Alprazolam 1 MG FOUR TIMES A DAY PRN 01/27 1645 DC 01/29 PO 02/03 1644 1325 Aripiprazole 15 MG AT BEDTIME 01/26 2200 AC 01/29 PO 2132 Carisoprodol 350 MG TID 01/26 2200 AC 01/30 PO 0812 Clonazepam 0.5 MG 4 TIMES/DAY 01/29 1400 AC 01/30 PO 02/05 1359 0811 Clonidine 0.1 MG Q6-PRN PRN 01/27 1815 AC PO Divalproex Sodium 1,500 MG DAILY 01/27 1000 AC 01/29 PO 0756 Gabapentin 800 MG Q8 01/27 2200 AC 01/30 PO 0717 Hydroxyzine HCl 25 MG 4 TIMES/DAY 01/26 2200 AC 01/30 PO 0811 Methadone HCl 5 MG 0801/30 0800 DC 01/30 PO 01/30 0801 0813 Nicotine 2 MG Q4 PRN 01/28 1400 AC 01/29 PO 1325 Nicotine 21 MG DAILY 01/28 1000 AC 01/29 TOP 0756 Paroxetine HCl 10 MG 0801/27 1730 AC 01/30 PO 0811 Prazosin HCl 1 MG 8AM 01/30 0800 AC 01/30 PO 0811 Prazosin HCl 1 MG AT BEDTIME 01/26 2200 AC 01/29 PO 2132 Vital Signs Date Time Temp Pulse Resp B/P B/P Pulse O2 O2 Flow FiO2 Mean Ox Delivery Rate 01/30 0811 75 110/69 01/30 0806 98.1 75 110/69 01/30 2132 97.9 71 18 127/65 01/29 2015 97.9 71 127/65 01/29 1204 71 113/66 Lab Valproic Acid 40.1 ug/mL L 01/30/17 0630 A: Chart, progress notes, labs, vital signs and medication list reviewed. Vital signs within normal limits. VPA is subtherapeutic, 40.1ug/mL. This past weekend Xanax 1mg four times daily was changed to Klonopin 0.5mg four times daily and Prazosin 1mg QAM added for flashbacks. No evidence of opiate w/d noted or reported per progress notes. Patient seen at 1:47PM. He reports high anxiety related to multiple stressors: anticipated arraignment tomorrow on unit at 3PM, fear of his fiance breaking up with him, and going to [facility]. Patient requested an increase in Klonopin given increase in anxiety. Stated he did not sleep well last night d/t his legs feeling "shaky." Denied NMAs. Educated patient that 4mg of Xanax daily is equivalent to Klonopin 2 mg daily. We agreed to change Klonopin 0.5mg four times daily to Klonopin 0.5mg BID at 8AM/2PM and 1mg QPM. Patient refused recommendation to increase Gabapentin. Describes mood as "depressed, agitated." Affect constricted, non-labile. Speech normal in rate, tone, volume. Eye contact appropriate. Rates depression a 6-8/10 (10 being worst). Reports passive SI, denies plan or intent. Denies active SI. Gave safety promise while on unit. Denies HI, AH and VH. Reports continued racing thoughts, "I can't stop worrying. " No evidence of PI or delusional/illogical thought content. Appetite, "very little." Energy, "just down." Reports tolerating medications well, denies SEs. Agreeable to increase in VPA to 1,750mg daily for further mood stabilization. P: -change Klonopin from 0.5mg 4xdaily to 0.5mg BID at 8AM/2PM and 1mg QPM for anxiety. -increase Depakote ER to 1750mg daily for racing thoughts/ mood stabilization. VPA level on 02/02/17. -monitor for safety, mood, SI. -arraignment hearing tomorrow on unit at 3PM. -increase Paxil to 20mg daily for anxiety/depression; start tomorrow. -continue Prozosin 1mg BID to FBs, NMAs. -dispo per primary team.
--- NOTE | 2017-01-30 10:33 | NUR ---
IN BED MOST OF AM REFUSED BREAKFAST "NOT HUMGRY" ON PHONE TOLD HE HAD TO GET OFF DURING GROUP. BECAME UPSET SLAMMED PHONE DOWN AND RETURNED TO ROOM. REMINDED THAT THIS IS INAPPROPRIATE BEHAVIOR
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
[2017-01-30 12:12] VITALS: BP 114/68
--- NOTE | 2017-01-30 13:26 | NUR ---
PT IS A/OX3, SEEN IN [facility] INTERACTING WITH PEERS AND STAFF, MOOD IS DEPRESSED WITH EUTHYMIC AFFECT, CALM AND COOPERATIVE, MEDICATION AND RULE COMPLIANT, SAD AND TEARFUL ABOUT CURRENT SITUATION WITH BEING ARRESTED AND FIANCE LEAVING HIM. HAS CONCERNS ABOUT CURRENT MEDICAITON AND IS WAITING TO TALK TO PLATE GRAINER ABOUT IT. DENIES SI/HI/CHRISTIANSEN AT THIS TIME.
[2017-01-30 16:05] VITALS: BP 110/62
--- NOTE | 2017-01-30 16:35 | SOCIAL WORKER TX PLAN PSYCH ---
Treatment Plan - Please Document: - Evidence that there is ongoing collaboration between - the patient and the interdisciplinary team, - including the patient's active participation and - responsibility for engaging in the treatment regimen, - and that the treatment plan is individualized and - relevant to the patient's conditions. - Treatment plan should reflect documentation indicating - that all active therapeutic efforts are included. Strengths/Capabilities: The patient does have good insight into his need for treatment and is motivated to attend. Physical Limitations (Interventions): chronic back pain DSM5/PS Stressors/Medical Prob Diagnosis' (DSM 5, Stressors, Medical): Bipolar I depressed F31.4, stimulant use d/of12.20, opiate use d/o f11.20 Current GAF: 25 Treatment Team - Responsibilities of members of the treatment team include: - Medication Management- MD or FILER METAL PATTERNS - Medication Administration and Monitoring- Nurse - Group Therapy- Occupational Therapist - 1:1 Therapy,Disch Planning,family involvement-Sexton Helper
[2017-01-30 19:54] VITALS: BP 122/73
--- NOTE | 2017-01-30 20:08 | NUR ---
PT HAS BEEN WITHDRAWN AND ISOLATIVE, SPENDING MOST OF THE SHIFT IN HIS ROOM ASLEEP. WHEN AWAKE HE REPORTS FEELING IRRITABLE AND HOPELESS ABOUT HIS FUTURE. PT ALSO EXPRESSED TO STAFF THAT HE WAS ANXIOUS ABOUT COURT COMING TOMORROW. PT DENIES ANY THOUGHTS OF SI WHEN ASKED BY STAFF.
--- NOTE | 2017-01-31 07:57 | NUR ---
PT SUBDUED, IN BED EARLY. PT SLEPT. PT WILL HAVE AN ARRAIGNMENT HEARING AT 1500 THIS AFTERNOON IN THE CONFERENCE ROOM.
[2017-01-31 08:02] VITALS: BP 103/60
--- NOTE | 2017-01-31 12:16 | SOCIAL WORKER PROG NOTE PSYCH ---
Social Work Progress Note Progress Note Spoke with Xiomara Pedraza from [facility] this morning. She would like a referral done for Harris to do IOP. He has an appt. to see Caitlyn Ramsey APRN on 02/13 8:40am. Shared that he has an arraignment hearing at 3pm today. Harris and I spoke about my conversation with his fiance Jaclyn. He remains very tearful and upset that she doesn't want to be with him anymore. This seems to be his biggest concern. He stated she is all he has. He is worried she may leave the state with his 2 boys. He is anxious over the hearing today, but isn' t has concerned about going to half-way as he is about losing Crystal. He reports not sleeping well last night. Got about 4 hours of sleep. Reports ongoing back pain today. He is completely off Methadone at this point. Reports some restlessness and increased anxiety. When asked if he had suicidal thoughts? He stated "a little, mostly due to everything going on." Encouraged him to stay present and focus on calming his anxiety. Told him I would not be in the hearing today. Asked if he were to go and not go to half-way what friend would he be staying with? He gave me Blaine García's address: [address] [place] [address], [place] [phone]. Told him I would need to confirm he would stay there once we know he will be released. He said that was fine, but would like to call him first. Harris is under the impression that he may be doing some time in half-way. Arraignment hearing was held at 3pm. Harris was given a nuñez set at 10,500. He talked to Itzel Bergeron APRN and I about his situation. He was anxious. Stated he might be able to make nuñez, but may not have the money until 02/07. He is preoccupied with calling Jaclyn to inform her what is going on. We allowed him to call a couple of times from Itzel's office, but she did not pickling tank operator. He denies any current SI and is safe on the unit. Itzel Bergeron APRN started an additional PRN antidepressant for him.
[2017-01-31 12:38] VITALS: BP 98/61
--- NOTE | 2017-01-31 13:31 | NUR ---
PT IS COMPLIANT AND COOPERATIVE. MOOD IS STABLE WITH A CONSTRICTED AFFECT. PT DENIES SI AT THIS TIME, C/O INCREASED ANXIETY R/T ARRAIGNMENT HEARING AT 1500 TODAY. NO S/S OF DETOX NOTED OR REPORTED. PT IS PRESENT ON THE UNIT AND INTERACTING WT PEERS AND STAFF. PT IS ATTENDING MOST GROUPS. VITALS ARE STABLE, APPETITE IS GOOD.
--- NOTE | 2017-01-31 15:53 | CP SOUTH PROGRESS NOTE PSYCH ---
Psych (Inpt) Progress Note Progress Note Include the following elements, when applicable: Involvement in the active treatment of the patient with behavioral observations of the patient and the patient's response to the treatment. Review of the ongoing treatment process in the context of the treatment plan. Indication of how multi-disciplinary staff members are carrying out the treatment plan. Plans for future interventions and recommendations for revision of the treatment plan. Liaison with other physicians/providers. Progress Note: I discussed this patient's progress to date, current mental status, treatment process in the context of the treatment plan, and discharge planning with staff/ team in the daily morning inpatient team meeting. I also met with the patient myself in individual session. Current Medications Sig/Bonny Start time Last Medication Dose Route Stop Time Status Admin Aripiprazole 15 MG AT BEDTIME 01/26 2200 AC 01/30 PO 2235 Carisoprodol 350 MG TID 01/26 2200 AC 01/31 PO 1216 Clonazepam 1 MG 01/31 AC PO 02/07 195 Clonazepam 0.5 MG 08,1400 01/31 08 AC 01/31 PO 02/06 1359 1347 Clonazepam 1 MG 01/30 DC 01/30 PO 01/30 2001 204 Clonidine 0.1 MG Q6-PRN PRN 01/27 1815 AC 01/30 PO 223 Divalproex Sodium 1,750 MG DAILY 01/30 1000 AC 01/31 PO 075 Doxepin HCl 25 MG AT BEDTIME NEED.. 01/31 1600 UNVr PO Gabapentin 800 MG Q8 01/27 2200 AC 01/31 PO 1346 Hydroxyzine HCl 25 MG 4 TIMES/DAY 01/26 2200 AC 01/31 PO 1346 Ibuprofen 600 MG Q6-PRN PRN 01/31 0915 AC PO Nicotine 2 MG Q4 PRN 01/28 1400 AC 01/30 PO 1709 Nicotine 21 MG DAILY 01/28 1000 AC 01/31 TOP 0752 Paroxetine HCl 20 MG 01/31 08 AC 01/31 PO 0751 Prazosin HCl 1 MG 8AM 01/30 08 AC 01/31 PO 0751 Prazosin HCl 1 MG AT BEDTIME 01/26 2200 AC 01/30 PO 223 Vital Signs Date Time Temp Pulse Resp B/P B/P Pulse O2 O2 Flow FiO2 Mean Ox Delivery Rate 01/31 1238 78 98/61 01/31 0802 97.1 88 103/60 01/31 0751 98.0 96 18 122/73 01/30 2236 96 122/73 01/30 2236 96 12273 01/30 1954 98.0 96 12201/30 1605 84 110/62 A: Chart, progress notes, labs, vital signs and medication list reviewed. Vital signs within normal limits. Patient seen at 3:39PM. Reports just getting out of arraignment hearing. States he will ultimately be going to senior care unless he can nuñez out. Nuñez is set at $10, 500. Patient states he only has to pay approx. 1k of that, however, he won't receive money until 02/07. Reports he anticipated senior care to be the outcome of the hearing. Reports continued anxiety, 02/16 (10 being worst). Affect mostly constricted, tearful at times when discussing fear of losing his children. Patient is convinced that his fiance will move out of state with them, that he will never see them again. Has made several attempts to contact her by phone to provide update on legal matters. Reports continued depression, -02/16. Denies passive and active suicidal ideation, plans, intent. Continues to give safety promise on unit. Denies homicidal ideation. Denies AH, VH, PI. No evidence of paranoia or delusions. Reports his appetite and energy level are low. Reports sleeping poorly last night. Agreeable to trialing Doxepin 25mg QHS PRN for insomnia, given past failed trials of trazodone, remeron, seroquel, atarax. Reviewed the risks/SEs of Doxepin, patient verbalized understanding. Reports tolerating recent increase in Paxil well, denies SEs. Agreeable to continue taking medications. P: -cont. Klonopin as prescribed. -cont. depakote er 1750mg daily. VPA level, 02/02/17. -monitor for safety, mood, SI. -cont. Paxil 20mg daily for depression/anxiety. -cont. Prazosin 1mg BID for FBs, NMAs. -if stable tomorrow, consider discharge into PD custody.
[2017-01-31 16:12] VITALS: BP 106/59
[2017-01-31 20:19] VITALS: BP 105/50
--- NOTE | 2017-01-31 20:52 | NUR ---
PT IN ROOM MOST OF THE EVENING BUT WAS IN THE LOUNGE FOR SOME OF THE TIME. PT WAS INTERACTING FOR A SHORT WHILE IN THE LOUNGE WITH ONE OF HIS PEERS. PT DID NOT EAT UNTIL MUCH LATER, AFTER THIS [facility]HW APPROACHED HIM ABOUT HIS FOOD ASKING IF HE WOULD LIKE IT TO BE HEATED. PT AGREED AND ATE 100% OF HIS MEAL. PT IS COMPLIANT WITH THE RULES OF THE UNIT. PT DENIES THOUGHTS TO HURT HIMSELF WHEN ASKED.
[2017-01-31 21:42] VITALS: BP 105/50
[2017-01-31] MEDS ORDERED: GABAPENTIN400 M2 PO (22:34)
[2017-01-31] MEDS ORDERED: CLONIDINE HCL0.1 MG PO (22:34)
[2017-01-31] MEDS ORDERED: KLONOPIN0.5 M1 PO (22:34)
[2017-01-31] MEDS ORDERED: PAXIL20 M1 PO (22:34)
[2017-01-31] MEDS ORDERED: DIVALPROEX SOD500 M2 PO (22:34)
[2017-01-31] MEDS ORDERED: KLONOPIN1 M1 PO (22:34)
[2017-01-31] MEDS ORDERED: DOXEPIN HCL25 MG PO (22:34)
[2017-01-31] MEDS ORDERED: IBUPROFEN600 M1 PO (22:34)
[2017-01-31] MEDS ORDERED: NICORELIEF2 MG PO (22:34)
--- NOTE | 2017-01-31 22:42 | NUR ---
Patient being discharged into custody of [facility]. Patient anxious toward discharge. Patient participated in care plan, alert oriented to person, place, time and situation. Patient calm and cooperative on the unit. Interacts with peers and staff. Patient appropriate.
--- NOTE | 2017-01-31 22:43 | Patient Discharge Instructions ---
Psych Discharge Inst General Discharge Information Reason for Admission: Suicidal ideation with plan to hang himself. Psy Discharge Primary Diag+ Bipolar d/o, depressed Psy Discharge Secondary Diag+ PTSD Opiate use disorder Hx seizure Summary Tests/Major Procedures BUN 21 H Needs TSH checked VPA 01/30/17 40.1 L Urine drug screen 01/26/17 + amphetamines, benzodiazepines, methadone EKG 01/26/17 sinus rhythm @ 69, probable lat infarct old, insignificant change, borderline EKG, normal QT and QTc. Studies Pending at OR: None. Patient Instructions Contact Information Your Psychiatrist on [facility] was AMANDA WELLINGTON,CARL Ellsworth. * If you are experiencing an emergency related to this hospitalization, please call [phone] to contact the treating psychiatrist or the psychiatrist-on- call. * To Request a copy of your medical records, please contact the Medical Records Department at [phone]. * To request results of studies pending at the time of discharge, please call [phone]. * Continue your Medications until directed to stop by your Healthcare provider. General Medication Information Please continue to take your new medications and your continued home medications , unless otherwise indicated on your discharge medication list, or unless directed by your MD or FOOD SAMPLER to stop them. Special Instructions: PLEASE PLACE PATIENT ON A SUICIDE WATCH AT [facility]. Advance Directives Does the Patient have Medical Advance Directives No/Refused further info Does Pt have Psychiatric Advance Directives? No/Refused further info Does Patient have a Designated Surrogate Decision Maker: No Information About Psychiatric Advance Directives Provided? Refused Discharge Plan Post Hospital Treatment Plan: REFERRED TO [facility]. PATIENT MUST BE PLACED ON A SUICIDE WATCH.
--- NOTE | 2017-01-31 23:07 | NUR ---
Capt Schneider of [employer] was notified of patient high risk for suicide. Capt Schneider verbalized understanding of patient condition and will follow protocols per [facility]
--- NOTE | 2017-02-01 07:51 | DISCHARGE SUMMARY REPORT-PSYCH ---
Visit Information Visit Dates/Diagnosis' Admission Date: 01/27/17 Discharge Date: 01/31/17 Reason for Admission: Suicidal ideation with plan to hang himself. Psy Discharge Primary Diag: Bipolar d/o, depressed Psy Discharge Secondary Diag: PTSD Opiate use disorder Hx seizure Hospital Course Significant Lab Findings: Lab BUN 21 mg/dL H 01/26/172031 Amphetamines Screen > 1450 NG/ML H 01/26/172125 Methadone Screen > 735 NG/ML H 01/26/172125 U Benzodiazepines Scrn > 800 NG/ML H 01/26/172125 Valproic Acid 40.1 ug/mL L 01/30/17 0630 Course Complications: None. Consultations: The patient was seen for admission history and physical by shellfish bed worker Dr. Naeem Arthur. Please see his note for additional information. Allergies: Coded Allergies: doxycycline (Severe, ANAPHYLAXIS 03/06/16) Fish Containing Products (HIVES 01/26/17) cefaclor (ANAPHYLAXIS 01/26/17) codeine (UNKNOWN PER PT 01/26/17) venom-honey bee (bee venom (honey bee)) (ANAPHYLAXIS 01/26/17) Hospital Course/TX Response: The patient was monitored on the unit for safety, mood, suicidal ideation and opiate withdrawal. He was provided a brief Methadone taper to lessen symptoms of withdrawal. Clonidine 0.1mg Q6H PRN was started for restlessness/anxiety/ discomfort. He tolerated taper well without complications. Alprazolam 2mg TID was decreased to 1mg four times daily PRN then switched to Clonazepam 0.5mg four times daily. Patient reported feeling that this dosing regimen did not adequately cover his symptoms of anxiety; he initially requested an increase in Clonazepam which was denied, but later agreed to switch dosing to 0.5mg BID and 1mg QHS. Paxil 10mg daily was started for anxiety/depression and gradually increased to 20mg daily. Depakote ER 1,500mg daily was increased to 1,750mg daily for mood stabilization. VPA level is due next on 02/02/17. Prazosin 1mg QHS was continued for nightmares. Gabapentin 600mg TID was increased to 800mg TID for anxiety/discomfort. Atarax 25mg four times daily PRN was started for anxiety. Soma 350mg TID was continued as a muscle relaxant. Abilify 15mg nightly was continued for mood stabilization. Doxepin 25mg QHS PRN was started for insomnia, given past failed trials of Trazodone, Remeron, Seroquel and Atarax for insomnia. Nicotine 2mg gum was started every four hours PRN for smoking cessation. Ibuprofen 600mg every 6 hours PRN was started for moderate pain. The patient tolerated medications well and denied side effects. During the hospital course, the patient's mood and affect improved. Suicidal ideation remitted. He consistently denied auditory and visual hallucinations, and homicidal ideation. There was no evidence of paranoia, illogical or delusional thought content. An arraignment hearing was held on the unit on . It was determined from the hearing that the patient would return into police custody post-discharge for incarceration. The patient was later discharged from [facility] that night into police custody who were advised that PATIENT BE PLACED ON SUICIDE WATCH AT [facility]. Discharge HBIPS - Tobacco Use Treatment Offered Post DC Medications Offered: Script Given-See Med List Post DC Tobacco Treatment Plan: Refused Tobacco Tx Pgm - EtOH/Drug Use D/O Treatment Offered Post DC Medications Offered: Med Not Indicated for D/O Post DC EtOH/SubAbuse TX Plan: Refused Post DC Tx Pgm Metabolic Screening - Screen if on a Neuroleptic Medication - Metabolic screening should include: - Blood Pressure, BMI, Glucose or Hgb A1c, & a - Lipid profile from within the past 365 days. Metabolic Screening () Not Applicable, patient not on a neuroleptic. OR ([X) Patient on a neuroleptic(s) . Enter below results for Glucose or Hemoglobin A1C, and lipid panel if obtained during the last 365 days. BMI: 28.100 Blood Pressure: 105/50 Laboratory Results (If applicable): Lab Cholesterol 163 MG/DL 10/26/16 0610 Cholesterol/HDL Ratio 4 % 10/26/16 0610 Glucose 82 mg/dL 01/26/17 2032 HDL Cholesterol 44 mg/dL 10/26/16 0610 LDL Cholesterol, Calc 71 mg/dL 10/26/16 0610 Triglycerides 241 mg/dL H 10/26/16 0610 Discharge Instructions General Discharge Information Discharge Medications: Discharge Medications- (Dose, route, freq, indication): START taking these NEW Home Medications: Nicotine Dose: ORAL, Every 4 hours as Days: 30 (Nicorelief) 2 MG 2 Milligram needed for SMOKING Refills: 0 GUM CESSATION Clonidine HCl Dose: ORAL, EVERY 6 HOURS Days: 7 (Clonidine HCl) 0.1 0.1 Milligram NEEDED as needed for Refills: 0 MG TABLET restless/anxious/discomfo t Ibuprofen Dose: ORAL, EVERY 6 HOURS Days: 30 (Ibuprofen) 600 MG 600 Milligram NEEDED as needed for Refills: 0 TABLET PAIN SCALE 4-6 (MODERATE) Clonazepam Dose: ORAL, 0800,1400 for Days: 30 (Klonopin) 0.5 MG 0.5 Milligram anxiety Refills: 0 TABLET Clonazepam Dose: ORAL, 2000 for anxiety Days: 30 (Klonopin) 1 MG 1 Milligram Refills: 0 TABLET Divalproex Sodium Dose: ORAL, DAILY for seizures Days: 30 (Divalproex Sodium) 1,750 Refills: 0 500 MG TABLET.DR Milligram Gabapentin Dose: ORAL, EVERY 8 HOURS for Days: 30 (Gabapentin) 400 MG 800 Milligram anxiety Refills: 0 CAPSULE Doxepin HCl (Doxepin Dose: ORAL, AT BEDTIME Days: 30 HCl) 25 MG CAPSULE 25 Milligram NEEDED as needed for Refills: 0 INSOMNIA Paroxetine HCl Dose: ORAL, DAILY @8 AM for Days: 30 (Paxil) 20 MG TABLET 20 Milligram depression Refills: 0 CONTINUE taking these Home Medications: Carisoprodol (SOMA) 350 Dose: ORAL, THREE TIMES DAILY MG TABLET 350 Milligram for PAIN Last Taken: 11/03/16 Time: 0800 Nicotine (Nicotine Dose: On the skin, DAILY for Patch) 21 MG/24 HOUR 21 Milligram smoking cessation PATCH.TD24 Last Taken: 11/02/16 Time: 0800 Prazosin Hydrochloride Dose: ORAL, AT BEDTIME for (Minipress) 1 MG CAPSULE 1 Milligram NIGHTMARES Last Taken: 11/02/16 Time: 2200 Aripiprazole (Abilify) Dose: ORAL, AT BEDTIME for 15 MG TABLET 15 Milligram MOOD STABILITY/CLEAR THOUGHTS Last Taken: 11/02/16 Time: 2200 Hydroxyzine Pamoate Dose: ORAL, 4XDAILY for (Hydroxyzine Pamoate) 25 1 Capsule ANXIETY MG CAPSULE STOP taking these DISCONTINUED Home Medications: Methadone HCl (Methadone HCl) Dose: ORAL, DAILY for MAINTENCE 10 MG/5 ML SOLUTION 70 Milligram Reason Stopped: not given Alprazolam (Xanax) 2 MG TABLET Dose: ORAL, THREE TIMES DAILY for 2 Milligram ANXIETY Reason Stopped: Changed to different med Divalproex Sodium (Divalproex Dose: ORAL, DAILY for MENTAL Sodium ER) 500 MG TAB.ER.24H 1,500 Milligram HEALTH/SEIZURES Reason Stopped: Changed Dose Gabapentin (Gabapentin) 600 MG Dose: ORAL, THREE TIMES DAILY for TABLET 1 Tablet MENTAL HEALTH/SEIZURES Reason Stopped: Changed Dose Multiple Neuroleptics: ([X]) Not Applicable OR Document below three failed attempts at monotherapy, or a plan to taper to monotherapy, or augmentation of Clozapine. () Patient's Diet: Regular. Patient's Activity: No restrictions. DC Disposition: Discharged into police custody and to directly transferred to [facility]. Recommendations: PLEASE PLACE PATIENT ON SUICIDE WATCH AT [facility]. Patient is to continue all discharge medications until otherwise informed by a medical provider. Depakote level scheduled next on 02/02/17. Referred To: [facility] [address] [place], [place] (t)[phone] Copies To: [facility]
== END 2017-01-31 23:00 | disposition other institution (70) | DRG 753 ==
LOC: ERH 19:50 → ERHI 01-27 11:30 → CP SOUTH 01-27 11:30 → ENTRNSPT 01-27 11:59 → EDTRNSPT 01-27 12:17 → EDTRNSPTSTS 01-27 12:17 → CP SOUTH 01-27 12:23 → CMPTRNSPT 01-27 12:26 → ENRESERV 01-27 23:59 → CP SOUTH 01-31 23:00
PROVIDERS: Emergency Medicine; ADMIT Psychiatry & Neurology Addiction Medicine
DX: F31.9 Bipolar disorder, unspecified (principal); F43.10 Post-traumatic stress disorder, unspecified; F11.90 Opioid use, unspecified, uncomplicated; R56.9 Unspecified convulsions
CPT/HCPCS: 36415; 80307; 93005; 93010; G0480

== ENCOUNTER 2018-01-31 16:34 | Emergency (ER) | payer OTHER ==
[~2018-01-31 16:34] MED LIST changes: +CLONIDINE HCL0.1 MG PO; +DIVALPROEX SOD500 M2 PO; +DOXEPIN HCL25 MG PO; +GABAPENTIN600 M1 PO; +HYDROXYZINE PAM25 M2 PO; +IBUPROFEN600 M1 PO; +KLONOPIN0.5 M1 PO; +KLONOPIN1 M1 PO; +NICORELIEF2 MG PO; +PAXIL20 M1 PO
[2018-01-31 19:13] LABS: ABSOLUTE BASOPHIL COUNT 0.1 /CUMM (0.0-0.2); ABSOLUTE EOSINOPHIL COUNT 0 /CUMM (0.0-0.7); ABSOLUTE LYMPH COUNT 2.1 /CUMM (1.2-3.4); ABSOLUTE MONOCYTE COUNT 0.8 /CUMM (0.10-0.60); BASOPHIL % 0.7 % (0.0-2.0); EOSINOPHIL % 0.3 % (0-5); GRANULOCYTE % 72.6 % (42.2-75.2); HEMATOCRIT 52.5 % (42-52); MEAN CORPUSCULAR HGB 28.2 PG (27.0-31.0); MEAN CORPUSCULAR HGB CONC 33.1 G/DL (33.0-37.0); MEAN CORPUSCULAR VOLUME 85.2 FL (80.0-94.0); MEAN PLATELET VOLUME 8.4 FL (7.4-10.4); PLATELET COUNT 251 /CUMM (130-400); RBC DISTRIBUTION WIDTH 13.9 % (11.5-14.5); RED BLOOD CELL CT 6.16 /CUMM (4.70-6.10)
[2018-01-31] MEDS ORDERED: ZOFRAN ODT4 M1 SL (20:16)
[2018-01-31] MEDS ORDERED: BUTALB-ACETAMI1 EACH PO (20:16)
--- NOTE | 2018-01-31 20:16 | ED AMS/SEIZURE/WEAK/DIZZY ---
History of Present Illness General Chief Complaint: Dizziness Stated Complaint: DIZZY Source: patient Exam Limitations: no limitations Vital Signs & Intake/Output Vital Signs & Intake/Output Vital Signs Date Time Temp Pulse Resp B/P B/P Pulse O2 O2 Flow FiO2 Mean Ox Delivery Rate 01/31 2030 Room Air 01/31 2030 98.0 94 16 133/95 98 Room Air 01/31 1638 98.0 114 17 133/89 96 Room Air Allergies Coded Allergies: doxycycline (Severe, ANAPHYLAXIS 03/06/16) Fish Containing Products (HIVES 01/26/17) cefaclor (ANAPHYLAXIS 01/26/17) codeine (UNKNOWN PER PT 01/26/17) venom-honey bee (bee venom (honey bee)) (ANAPHYLAXIS 01/26/17) Reconcile Medications Aripiprazole (Abilify) 15 MG TABLET 15 MG PO AT BEDTIME MOOD STABILITY/CLEAR THOUGHTS Butalb/Acetaminophen/Caffeine (Zogayw-Yevmrbmh-Remu 50-325-40) 50 MG-325 MG-40 MG TABLET 1-2 TAB PO DAILY headache Carisoprodol (SOMA) 350 MG TABLET 350 MG PO TID PAIN (Reported) Clonazepam (Klonopin) 0.5 MG TABLET 0.5 MG PO 0800,1400 anxiety Clonazepam (Klonopin) 1 MG TABLET 1 MG PO 2000 anxiety Clonidine HCl 0.1 MG TABLET 0.1 MG PO Q6-PRN PRN restless/anxious/discomfort Divalproex Sodium 500 MG TABLET.DR 1,750 MG PO DAILY seizures Doxepin HCl 25 MG CAPSULE 25 MG PO AT BEDTIME NEEDED PRN INSOMNIA Gabapentin 400 MG CAPSULE 800 MG PO Q8 anxiety Hydroxyzine Pamoate 25 MG CAPSULE 1 CAP PO 4XDAILY ANXIETY (Reported) Ibuprofen 600 MG TABLET 600 MG PO Q6-PRN PRN PAIN SCALE 4-6 (MODERATE) Nicotine (Nicotine Patch) 21 MG/24 HOUR PATCH.TD24 21 MG TOP DAILY smoking cessation Nicotine (Nicorelief) 2 MG GUM 2 MG PO Q4 PRN SMOKING CESSATION Ondansetron (Zofran Odt) 4 MG TAB.RAPDIS 1 TAB SL TID nausea Paroxetine HCl (Paxil) 20 MG TABLET 20 MG PO 0800 depression Prazosin Hydrochloride (Minipress) 1 MG CAPSULE 1 MG PO AT BEDTIME NIGHTMARES Triage Note: PT TO ED WITH C/O DIZZINESS AND NAUSEA BEGINNIGN THIS AM. STATES HAD A MONSTER DRINK AND HONEY BUN FOR BREAKFAST. DENIES CP OR SOB. WAS RELEASED FROM [facility] THIS AM. STATES DIZZINESS IS LIKE THE ROOM IS SPINNING. Triage Nurses Notes Reviewed? yes Onset: Abrupt Duration: day(s): (1), constant Timing: recent history Injury Environment: home No Modifying Factors: none HPI: 32-year-old male that was [facility] out of [facility] earlier today comes into emergency room complaints of dizziness and nausea. Denies any chest pain shortness of breath. Denies any fever chills. Denies any abdominal pain. He comes in for further evaluation. Symptoms began this morning. While in the waiting room patient reports that he developed a headache bitemporal region. 6 out of 10. Patient reports she's been under a lot of stress. He comes in for further evaluation. (Ganga Cosby) Past History Travel History Traveled to [place] past 21 day No Medical History Any Pertinent Medical History? see below for history Neurological: seizure EENT: NONE Cardiovascular: NONE Respiratory: NONE Gastrointestinal: NONE Hepatic: NONE Renal: NONE Musculoskeletal: NONE Psychiatric: anxiety, bipolar disease, PTSD DEPRESSION1 Endocrine: NONE Blood Disorders: NONE Cancer(s): NONE History of MRSA: No History of VRE: No History of CDIFF: No Surgical History Surgical History: none Psychosocial History Who do you live with Family What is your primary language Pakistani Tobacco Use: Current Not Daily Family History Hx Contributory? No (Ganga Cosby) Review of Systems Review of Systems Constitutional: Reports: no symptoms. EENTM: Reports: no symptoms. Respiratory: Reports: no symptoms. Cardiovascular: Reports: see HPI. GI: Reports: see HPI. Genitourinary: Reports: no symptoms. Musculoskeletal: Reports: no symptoms. Skin: Reports: no symptoms. Neurological/Psychological: Reports: see HPI. Hematologic/Endocrine: Reports: no symptoms. Immunologic/Allergic: Reports: no symptoms. All Other Systems: Reviewed and Negative (Ganga Cosby) Physical Exam Physical Exam General Appearance: well developed/nourished, no apparent distress, alert, awake Head: atraumatic Eyes: Bilateral: normal appearance. Ears, Nose, Throat: normal ENT inspection, hearing grossly normal Neck: normal inspection Respiratory: normal breath sounds, no respiratory distress Cardiovascular: regular rate/rhythm Back: normal inspection Extremities: normal range of motion Neurologic/Psych: awake, alert, oriented x 3 Skin: intact, normal color Core Measures ACS in differential dx? No CVA/TIA Diagnosis No Sepsis Present: No Sepsis Focused Exam Completed? No (Ganga Cosby) Progress Differential Diagnosis: benign positional vertigo, CVA/stroke, dehydration, intracranial mass/tumor, labrynthitis, presyncope, tension headache, migraine, cluster headache, intracranial bleed, Plan of Care: Orders Procedure Date/time Status LIPASE 01/31 1640 Complete COMPREHENSIVE METABOLIC PANEL 01/31 1640 Complete CBC WITHOUT DIFFERENTIAL 01/31 1640 Complete EKG 01/31 1640 Active Laboratory Tests 01/31/18 1857: Anion Gap 14, Estimated GFR > 60, BUN/Creatinine Ratio 11.7, Glucose 89, Calcium 9.7, Total Bilirubin 0.9, AST 29, ALT 34, Alkaline Phosphatase 69, Total Protein 7.8, Albumin 4.8, Globulin 3.0, Albumin/Globulin Ratio 1.6, Lipase 52, CBC w Diff NO MAN DIFF REQ, RBC 6.16 H, MCV 85.2, MCH 28.2, MCHC 33.1, RDW 13.9, MPV 8.4, Gran % 72.6, Lymphocytes % 19.5 L, Monocytes % 6.9, Eosinophils % 0.3, Basophils % 0.7, Absolute Granulocytes 8.0 H, Absolute Lymphocytes 2.1, Absolute Monocytes 0.8 H, Absolute Eosinophils 0, Absolute Basophils 0.1 Initial ED EKG: normal sinus rhythm, rate (89), nonspecific ST T wave chg (Ganga Cosby) Departure Departure Disposition: HOME OR SELF CARE Condition: Stable Clinical Impression Primary Impression: Dizziness Secondary Impressions: Headache, Nausea Referrals: [facility] Romina WELLINGTON,Sonal Mckeon (PCP/Family) Additional Instructions: Take Zofran and Fioricet prescribed. Follow-up with primary care Dr. nick. Return if any other concerns worsening symptoms. Please go over all results of today's visit with your primary care doctor. Contact your primary care doctor to let them know you were here in the emergency room. There may be nonspecific findings which may not be related to your visit today here in the emergency room but may require further evaluation and chronic monitoring by your primary care doctor. If you had a laceration today the chance of foreign body always remains. You should follow-up with your primary care doctor for recheck in 3-5 days for a wound check. If you had an x-ray done there is a chance that a fracture could have been missed on initial read and you should follow-up with your primary care doctor for repeat x-rays if symptoms persist. If your blood pressure was elevated here in the emergency room please have rechecked by candieour primary care doctor within the next 48. If you were prescribed a narcotic here in the emergency room or any type of controlled substances you're not allowed to drive while taking this medication or operate any type of heavy machinery. Narcotics can make you feel lightheaded dizziness nausea and can cause constipation. You may need to fruit or nut picker a stool softener. Thank you for choosing [facility] emergency room. Please return to the emergency room immediately if you have any other concerns worsening of symptoms. Departure Forms: Customer Survey General Discharge Information Prescriptions: Current Visit Scripts Ondansetron (Zofran Odt) 1 TAB SL TID #10 TAB Butalb/Acetaminophen/Caffeine (Qzqtlw-Vlsrfqrm-Kalk 50-325-40) 1-2 TAB PO DAILY #20 TAB (Ganga Cosby) PA/TMD TEACHER Co-Sign Statement Statement: ED Attending supervision documentation- I saw and evaluated the patient. I have also reviewed all the pertinent lab results and diagnostic results. I agree with the findings and the plan of care as documented in the PA's/TMD TEACHER's documentation. x I have reviewed the ED Record and agree with the PA's/TMD TEACHER's documentation. [] Additions or exceptions (if any) to the PAs/TMD TEACHER's note and plan are summarized below: [] (Nasrin WELLINGTON,Dorian)
[2018-01-31 20:30] VITALS: BP 133/95
== END 2018-01-31 20:31 ==
LOC: ERH 16:34
PROVIDERS: Physician Assistant Medical
DX: R42 Dizziness and giddiness (principal); R51 Headache; R11.0 Nausea
CPT/HCPCS: 93005; 93010

== ENCOUNTER 2018-02-01 18:43 | Inpatient (IN) | payer OTHER ==
[~2018-02-01] VITALS: Ht 175.3 cm; Wt 94.3 kg
[~2018-02-01 18:43] MED LIST changes: +BUTALB-ACETAMI1 EACH PO; +ZOFRAN ODT4 M1 SL
[2018-02-01 19:58] LABS: ABSOLUTE BASOPHIL COUNT 0 /CUMM (0.0-0.2); ABSOLUTE EOSINOPHIL COUNT 0.1 /CUMM (0.0-0.7); ABSOLUTE GRANULOCYTE CT 5.6 /CUMM (1.4-6.5); ABSOLUTE MONOCYTE COUNT 0.7 /CUMM (0.10-0.60); BASOPHIL % 0.5 % (0.0-2.0); EOSINOPHIL % 0.7 % (0-5); GRANULOCYTE % 66.9 % (42.2-75.2); HEMATOCRIT 52.2 % (42-52); MEAN CORPUSCULAR HGB 28.3 PG (27.0-31.0); MEAN CORPUSCULAR HGB CONC 33.2 G/DL (33.0-37.0); MEAN CORPUSCULAR VOLUME 85.2 FL (80.0-94.0); MEAN PLATELET VOLUME 8.2 FL (7.4-10.4); PLATELET COUNT 238 /CUMM (130-400); RBC DISTRIBUTION WIDTH 14.2 % (11.5-14.5); RED BLOOD CELL CT 6.12 /CUMM (4.70-6.10); WHITE BLOOD CELL COUNT 8.4 /CUMM (4.8-10.8)
--- NOTE | 2018-02-01 20:10 | ED PSYCHIATRIC COMPLAINT ---
History of Present Illness General Chief Complaint: Psychiatric Related Complaint Stated Complaint: DEPRESSION,ANXIETY Source: patient Exam Limitations: no limitations Vital Signs & Intake/Output Vital Signs & Intake/Output Vital Signs Date Time Temp Pulse Resp B/P B/P Pulse O2 O2 Flow FiO2 Mean Ox Delivery Rate 02/02 1435 97.4 88 18 125/88 98 02/02 1237 98.3 87 18 133/83 96 Room Air 02/02 1000 98.2 88 18 126/83 98 02/02 0715 98.2 88 18 124/65 98 02/02 0215 97.9 93 18 114/63 95 Room Air 02/01 2222 97.6 90 17 156/83 97 Room Air 02/01 1855 98.4 106 18 139/83 98 Room Air ED Intake and Output 02/02 0000 02/01 1200 Intake Total 0 Output Total Balance 0 Intake, Oral 0 Patient 219 lb Weight Weight Reported by Patient Measurement Method Allergies Coded Allergies: doxycycline (Severe, ANAPHYLAXIS 03/06/16) Fish Containing Products (HIVES 01/26/17) cefaclor (ANAPHYLAXIS 01/26/17) codeine (UNKNOWN PER PT 01/26/17) venom-honey bee (bee venom (honey bee)) (ANAPHYLAXIS 01/26/17) Reconcile Medications Butalb/Acetaminophen/Caffeine (Eaeuga-Eegnyjgg-Rmyv 50-325-40) 50 MG-325 MG-40 MG TABLET 1-2 TAB PO DAILY headache Ondansetron (Zofran Odt) 4 MG TAB.RAPDIS 1 TAB SL TID nausea Triage Note: 32 YO MALE TO TRIAGE FOR +SI. PT REPORTS PLAN IS TO CUT HIS WRISTS. STATES HE JUST GOT OUT OF [facility] AND "I AM VERY STRESSED OUT AND NEED HELP" DENIES ALCOHOL/DRUG USE. Triage Nurses Notes Reviewed? yes Onset: Gradual Duration: day(s): Timing: recent history Severity: moderate HPI: 32YO MALE with hx of depression, anxiety presents to ED complaining of worsening depression and suicidal ideation for the past several days. Patient states he was recently released [facility] last week and has been having intermittent suicidal thoughts since then. Patient does have a plan of cutting his wrists. He has scars on wrists from previous cutting and suicide attempt in the past. Patient is not currently on any psychiatric medication as he was just released from [facility] and has not seen a psychiatrist yet. He denies HI, hallucinations, drug use, alcohol use. (Nika Youssef) Past History Travel History Traveled to [place] past 21 day No Medical History Any Pertinent Medical History? see below for history Neurological: seizure EENT: NONE Cardiovascular: NONE Respiratory: NONE Gastrointestinal: NONE Hepatic: NONE Renal: NONE Musculoskeletal: NONE Psychiatric: anxiety, bipolar disease, PTSD DEPRESSION1 Endocrine: NONE Blood Disorders: NONE Cancer(s): NONE History of MRSA: No History of VRE: No History of CDIFF: No Surgical History Surgical History: none Psychosocial History Who do you live with Family What is your primary language Montenegrin Tobacco Use: Current Daily Use Daily Tobacco Use Amount/Type: =< 4 Cigarettes daily ETOH Use: denies use Illicit Drug Use: denies illicit drug use Family History Hx Contributory? No (Nika Youssef) Review of Systems Review of Systems Constitutional: Reports: no symptoms. EENTM: Reports: no symptoms. Respiratory: Reports: no symptoms. Cardiovascular: Reports: no symptoms. GI: Reports: no symptoms. Genitourinary: Reports: no symptoms. Musculoskeletal: Reports: no symptoms. Skin: Reports: no symptoms. Neurological/Psychological: Reports: see HPI. Hematologic/Endocrine: Reports: no symptoms. Immunologic/Allergic: Reports: no symptoms. All Other Systems: Reviewed and Negative (Nika Youssef) Physical Exam Physical Exam General Appearance: well developed/nourished, no apparent distress, alert, awake Head: atraumatic, normal appearance Eyes: Bilateral: normal appearance. Ears, Nose, Throat: hearing grossly normal Neck: normal inspection, supple, full range of motion Respiratory: normal breath sounds, no respiratory distress, lungs clear Cardiovascular: regular rate/rhythm Extremities: normal range of motion Neurological/Psychiatric: awake, alert, normal mood/affect, calm Appearance/Memory/Insight: appropriate appearance, appropriate insight Behavoir/Eye Contact/Speech: cooperative, normal speech, good eye contact Thoughts/Hallucinations: normal thought pattern, no apparent hallucination Skin: intact, normal color, warm/dry SAD PERSONS SAD PERSONS Response Value Male Sex? yes 1 Depression/Hopelessness? yes 2 Previous Attempts/Psych Care yes 1 Organized/Serious Attempt yes 2 Social Support? has support 0 Stated Future Intent? yes 2 Total 8 SAD PERSONS Done? yes (Nika Youssef) Progress Differential Diagnosis: drug intoxication, drug overdose, drug withdrawal, depression, suicidal ideation Plan of Care: Orders Procedure Date/time Status Regular Diet 02/02 B Active Admit to inpatient psych 02/02 1453 Active ED Holding Orders 02/02 1453 Active TROPONIN LEVEL 02/02 1100 Complete EKG 02/02 1100 Active TROPONIN LEVEL 02/02 0755 Complete EKG 02/02 0755 Active Intake & Output 02/01 2337 Active ED CRISIS PSYCH CONSULT 02/01 2059 Active ED CRISIS PSYCH CONSULT 02/02 2052 Active Continuous Observation Monitor 02/01 2009 Active URINE DRUG SCREEN FOR ER ONLY 02/02 1928 Complete ETHANOL 02/02 1928 Complete COMPREHENSIVE METABOLIC PANEL 02/02 1928 Complete CBC WITHOUT DIFFERENTIAL 02/02 1928 Complete Laboratory Tests 02/02/18 1137: Troponin I < 0.01 02/02/18 0809: Troponin I < 0.01 02/01/18 194: Serum Alcohol < 10.0 02/01/18 194: Anion Gap 15, Estimated GFR > 60, BUN/Creatinine Ratio 21.7, Glucose 115 H, Calcium 10.2, Total Bilirubin 1.0, AST 24, ALT 28, Alkaline Phosphatase 68, Total Protein 7.9, Albumin 4.9, Globulin 3.0, Albumin/Globulin Ratio 1.6, CBC w Diff NO MAN DIFF REQ, RBC 6.12 H, MCV 85.2, MCH 28.3, MCHC 33.2, RDW 14.2, MPV 8.2, Gran % 66.9, Lymphocytes % 23.7, Monocytes % 8.2, Eosinophils % 0.7, Basophils % 0.5, Absolute Granulocytes 5.6, Absolute Lymphocytes 2.0, Absolute Monocytes 0.7 H, Absolute Eosinophils 0.1, Absolute Basophils 0, Urine Opiates Screen < 100, Methadone Screen 85, Barbiturate Screen 558 H, Ur Phencyclidine Scrn < 6.00, Amphetamines Screen 543, U Benzodiazepines Scrn < 85, Urine Cocaine Screen 62, Urine Cannabis Screen 5.30 The patient's labs are stable. The patient was signed out to Dr. Alexandra pending crisis evaluation and disposition Hand-Off Endorsed To: Dorian Alexandra MD Endorsed Time: 99 Pending: consult (crisis) (Mildred COATES,Nika Juárez) Hand-Off Endorsed To: Leonora WELLINGTON,Josh Christianson Endorsed Time: 0700 Pending: consult, other (collateral) (Nasrin WELLINGTON,Dorian) Initial ED EKG: normal axis, normal intervals, normal p-waves, normal QRS complex, normal sinus rhythm (Leonora WELLINGTON,Josh Christianson) Comments: 02/03 1532 the patient is waiting admission. Accepted by the crisis service. Given medications to help with his anxiety. Denies any physical pain or discomfort. Awake, alert and oriented without any intoxication at this time. (Loree WELLINGTON,[facility]) Departure Departure Disposition: STILL A PATIENT Condition: Stable Clinical Impression Primary Impression: Suicidal ideation Referrals: Romina WELLINGTON,Sonal Mckeon (PCP/Family) Departure Forms: Customer Survey General Discharge Information (Mildred CAOTES,Nika Juárez) Departure Comments 02/02/18, 8:10am... pt reports anxiety associated with chest pain, "I was anxious all night." EKG benign, troponin drawn. Ativan 1mg ordered... will repeat ekg/ trop in 3 hours. pt to see crises this AM. Pt to be signed out to dr. shepherd, 11am. (Leonora WELLINGTON,Josh Christianson)
--- NOTE | 2018-02-01 21:07 | ED PSY CRISIS COLLATERAL NOTE ---
Collateral Note Collateral Note Family/Inform/Armen Contacts: Voice message left for andrew Castro ([phone]) to call crisis department.
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
[2018-02-02 18:25] VITALS: BP 118/77
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
[2018-02-03 07:54] VITALS: BP 137/87
[2018-02-03 08:20] VITALS: BP 137/87
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
[2018-02-03 19:27] VITALS: BP 149/81
[2018-02-04 07:55] VITALS: BP 122/79
--- NOTE | 2018-02-04 12:38 | CP SOUTH PROGRESS NOTE PSYCH ---
Psych (Inpt) Progress Note Progress Note Include the following elements, when applicable: Involvement in the active treatment of the patient with behavioral observations of the patient and the patient's response to the treatment. Review of the ongoing treatment process in the context of the treatment plan. Indication of how multi-disciplinary staff members are carrying out the treatment plan. Plans for future interventions and recommendations for revision of the treatment plan. Liaison with other physicians/providers. Progress Note: No behavioral issues, mood is down. States that he feels depressed in general, overhwelmed, some anxiety. States that he slept well with PRN medication last night. Wants to see his children. Said that hydroxyzine doesn't help his anxiety at all, but clonidine makes him fall asleep. We discussed trying 1/2 dose of clonidine to see whether it would be more effective at alleviating anxiety. Got 1st dose of wellbutrin today, feels good and no issues with it. Feels his heart pounding, stressed out about his living situation and life after incarceration. Able to describe his experiences, relate and advocate reasonably for changes. MSE: young man, well groomed, good hygiene. He has no psychomotor changes. He does not appear to be acutely anxious, but does appear dysphoric and down. States his mood is down, affect is constricted and congruent to his mood. Speech is normal. Thinking is linear and logical. No thoughts of wanting to kill self or harm anyone else, but endorses depressed mood, low motivation and some constricted thinking. No hallucinations. Insight is fair and judgment is fair. Cognition is grossly intact. A: 32 year old man with a history of drug use, depressive sx, anxiety symptoms, brought in by his fiance after he was released from [facility] (1 year incarceration) on 01/31 with recurrent thoughts of suicide. He went home with her, saw his 2 and 5 year old children, and following day continued to feel overwhelmed, depressed and stressed out, and she brought him to the ER. He endorses recent suicidal thoughts, feeling overwhelmed, unable to cope, and inability to sleep. Plan: - wellbutrin started at lower dose, has had no issues with it. - clonidine 0.05mg once today, will re-adjust dose if if is more effective. - sleep has been good per him, if worsens consider melatonin (PCP recommendation )
[2018-02-04 19:49] VITALS: BP 140/81
[2018-02-05 07:46] VITALS: BP 143/75
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
--- NOTE | 2018-02-05 17:45 | SOCIAL WORKER PROG NOTE PSYCH ---
Social Work Progress Note Progress Note Dr. Iraheta and this sheet writer met with the patient. He reported that he had been released from jail ([facility]) on 01/31/18, where he had served one year due to violation of probation. Patient's underlying charge was disorderly conduct. Since release, patient reported feeling stressed, increased crying and feeling overwhelmed. He stated that he lives with his fiance, Jaclyn Ricketts, a 2 year old son, a 5 year old son and Jaclyn's 20 year old son. He states that he is currently taking steps to re-instate his disability. Patient described his mood as "alot of anxiety." He rated the anxiety at a 9/10 and sadness at a 6/10. He denied SI, he denied having any wish to be and denied HI/VH. He reported having AH "to do stupid stuff." He reports a good appetite, axox3, good sleep last night. He reported past cocaine use and stated "I've been clean for 19 months." Patient reported that his father hung himself in 2009. Patient signed ASHLEY's for Jaclyn Bryantfeliciano and [facility]. This sheet writer spoke with Jaclyn in interest of scheduling a family meeting. She requested to contact this sheet writer in the morning and was provided with a call back number. Patient also signed an ASHLEY for his juvenile correctional officer, Emelia Loving. A vm was left for Maira Loving ([phone]) at 1:54pm with call back number.
[2018-02-05 18:20] VITALS: BP 145/78
--- NOTE | 2018-02-05 18:57 | SOCIAL WORKER PROG NOTE PSYCH ---
Social Work Progress Note Progress Note The services requested require additional review. You will be contacted regarding the status of this request if further information is needed. An authorization decision will be made within the required timeframes and details of that decision may be found under the member's authorization history. Member Name Member ID Member Subscriber Name Subscriber ID JODY RABAGO [id number] JODY SAVAGEOFALO [id number] Pended Authorization # Client Authorization # Type of Request [id number] CONCURRENT Date of Admission/ Start of Services Requested From Submission Date 02/02/2018 02/05/2018 02/05/2018 Level of Service Type of Service Level of Care Type of Care INPATIENT/HLOC Mental Health Inpatient Inpatient [facility] - Inpatient Hospital Reason Code P76 Provider Name & Address Provider ID Provider Alternate ID NPI # for Authorization RAYMON ESTRADA [id number] [facility] [id number]
[2018-02-05 19:44] VITALS: BP 145/78
[2018-02-06 07:39] VITALS: BP 147/83
[2018-02-06 07:58] VITALS: BP 147/83
[2018-02-06 12:14] VITALS: BP 141/86
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
[2018-02-06 16:21] VITALS: BP 135/86
--- NOTE | 2018-02-06 16:46 | SOCIAL WORKER PROG NOTE PSYCH ---
Social Work Progress Note Progress Note This designer writer met with patient. He reported his mood as "stressed out", however reported general improvement with his anxiety ("my chest pains are gone."). Patient stated that he is interested in a program that he can go to after discharge as he stated that his fiance "wants to see me doing the right thing" before he returns home to her. He would also like a referral to [facility] in [place]. Patient was provided with a list of Recovery Houses through [facility]. Patient denied HI/AH/VH. He continues to report SI with the thought of "I'm better off ." He denied having any plan to act on his SI and states that he is safe on this unit. He agreed to inform nursing immediately if feeling unsafe. This designer writer left a vm for patient's fianceJaclyn, to follow up on yesterday's phone conversation in interest in scheduling a family meeting. A call back number was provided.
[2018-02-06 19:53] VITALS: BP 143/89
[2018-02-06 20:07] VITALS: BP 143/89
[2018-02-07 07:43] VITALS: BP 137/77
[2018-02-07 08:10] VITALS: BP 137/77
[2018-02-07] MEDS ORDERED: DOXEPIN HCL25 MG PO (10:37)
[2018-02-07] MEDS ORDERED: NICORELIEF2 MG PO (10:37)
[2018-02-07] MEDS ORDERED: PAXIL20 M1 PO (10:37)
[2018-02-07] MEDS ORDERED: GABAPENTIN400 M2 PO (10:37)
[2018-02-07] MEDS ORDERED: CLONIDINE HCL0.1 MG PO (10:37)
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
--- NOTE | 2018-02-07 11:41 | SOCIAL WORKER PROG NOTE PSYCH ---
Social Work Progress Note Progress Note Faxed Referral to [facility] in [place]. Copy of confirmation and referral in chart.
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
--- NOTE | 2018-02-07 17:47 | SOCIAL WORKER PROG NOTE PSYCH ---
Social Work Progress Note Progress Note Dr. Iraheta, Gogo Gustafson (PA student) and this principal technical writer met with patient. He stated , "I feel alot better today. Less anxiety. My heart isn't beating out of my chest." Patient rated his mood at a 8 1/2 /10 with 10 being the best, anxiety at 4/10 with 10 being the worst, sad at a 2/10 with 10 being the worst. He reported that his sleep and appetite are good. Dr. Iraheta discussed medications with the patient, including benzodiazepines. Please see Dr. Iraheta's note regarding this. This principal technical writer spoke with Fanta at the [facility] in patient program inquiring about the referral process. She recommended that if an individual is on probation, then the security patrol officer submits the referral. This principal technical writer left a vm for the patient's security patrol officer requesting a call back. Patient was agreeable to discharge. We discussed different outpatient programs and the patient preferred to utilize the walk in hours at [facility] in [place] for IOP. We called together and learned that medication management would also be offered as part of the IOP. Patient denied SI/HI/AH/VH, he denied any thoughts to harm himself or thoughts wishing he was . He identified a safety plan in which he would call 911. He accepted the crisis numbers and warm lines. He denied having any access to weapons or guns. Patient was informed that a referral was submitted to [facility] in [place] (per his request), however, beds were not available today. This principal technical writer spoke with Francisca at [facility] and stated that the patient could call to inquire about bed availability. This was relayed to the patient, who agreed to follow up. Patient stated that he could not return home with his fiance and would utilize the emergency long-term on [facility] in [place]. We called [facility] ([phone]) and confirmed that it was a first come first serve and that the patient is recommended to be there around 2:30pm. Patient stated that his fiance would provide transportation. He was also informed of this principal technical writer's conversation with the [facility] and the attempt to reach his PO. He stated that he planned to go to his security patrol officer's office today after discharge and then go to the emergency long-term in [place]/[facility]. Patient stated that he also planned to call the [facility]. This principal technical writer and patient attempted to reach his fiance. She did not answer nor did she return the call (a vm was left). Patient stated that he was able to reach her and confirmed that she would be providing transportation from the hospital. Faxed Referral(s) Referred To: [facility] Transition of Care Documents sent: Health Summary Faxed to: [facility] Fax #: [phone] Faxed by: Sophie Cunningham LCSW Date faxed: 02/07/18 Time Faxed: [phone]
== END 2018-02-07 11:56 | DRG 754 ==
LOC: ERH 18:43 → ERHI 02-02 14:53 → CP SOUTH 02-02 14:53 → ENTRNSPT 02-02 17:56 → CP SOUTH 02-02 17:59 → EDTRNSPT 02-02 18:05 → EDTRNSPTSTS 02-02 18:05 → CP SOUTH 02-02 18:10 → CMPTRNSPT 02-02 18:13 → CP SOUTH 02-03 14:32
PROVIDERS: Physician Assistant; Psychiatry & Neurology Psychiatry
DX: F32.9 Major depressive disorder, single episode, unspecified (principal); F14.11 Cocaine abuse, in remission; F11.21 Opioid dependence, in remission; G40.909 Epilepsy, unspecified, not intractable, without status epilepticus
CPT/HCPCS: 36415; 80307; 93005; 93010; G0480; J0515; J1630

== ENCOUNTER 2018-03-28 19:22 | Inpatient (IN) | payer OTHER ==
[~2018-03-28] VITALS: Ht 172.7 cm; Wt 95.3 kg
[2018-03-28] MEDS ORDERED: CLONAZEPAM0.5 M2 PO (20:08)
[2018-03-28] MEDS ORDERED: DIVALPROEX SOD500 M2 PO (20:09)
[2018-03-28 20:32] LABS: ABSOLUTE BASOPHIL COUNT 0.1 /CUMM (0.0-0.2); ABSOLUTE EOSINOPHIL COUNT 0.2 /CUMM (0.0-0.7); ABSOLUTE GRANULOCYTE CT 5.7 /CUMM (1.4-6.5); ABSOLUTE LYMPH COUNT 2.7 /CUMM (1.2-3.4); ABSOLUTE MONOCYTE COUNT 0.9 /CUMM (0.10-0.60); BASOPHIL % 0.6 % (0.0-2.0); HEMATOCRIT 49.4 % (42-52); MEAN CORPUSCULAR HGB 28.6 PG (27.0-31.0); MEAN CORPUSCULAR HGB CONC 32.8 G/DL (33.0-37.0); MEAN CORPUSCULAR VOLUME 87.3 FL (80.0-94.0); MEAN PLATELET VOLUME 8.1 FL (7.4-10.4); PLATELET COUNT 276 /CUMM (130-400); RBC DISTRIBUTION WIDTH 15.3 % (11.5-14.5); RED BLOOD CELL CT 5.66 /CUMM (4.70-6.10); WHITE BLOOD CELL COUNT 9.4 /CUMM (4.8-10.8)
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
[2018-03-30 19:30] VITALS: BP 124/68
[2018-03-31 08:03] VITALS: BP 135/86
--- NOTE | 2018-03-31 19:17 | CP SOUTH PROGRESS NOTE PSYCH ---
Psych (Inpt) Progress Note Progress Note Include the following elements, when applicable: Involvement in the active treatment of the patient with behavioral observations of the patient and the patient's response to the treatment. Review of the ongoing treatment process in the context of the treatment plan. Indication of how multi-disciplinary staff members are carrying out the treatment plan. Plans for future interventions and recommendations for revision of the treatment plan. Liaison with other physicians/providers. Progress Note: The 32 years old white male individual was seen on the unit today the review of the lab results that showed a valproic acid level of 37.5 which was subtherapeutic and the dose was adjusted to thousand milligrams a day and probably should get therapeutic range in the next few days patient will overall
--- NOTE | 2018-03-31 19:29 | CP SOUTH PROGRESS NOTE PSYCH ---
Psych (Inpt) Progress Note Progress Note Include the following elements, when applicable: Involvement in the active treatment of the patient with behavioral observations of the patient and the patient's response to the treatment. Review of the ongoing treatment process in the context of the treatment plan. Indication of how multi-disciplinary staff members are carrying out the treatment plan. Plans for future interventions and recommendations for revision of the treatment plan. Liaison with other physicians/providers. Progress Note: The patient reports of having had issues after he returning from year of staying at it was a facility in [place] and he continues to express dysphoric feelings and despondency about not able to visit his needs from estranged who has a new person however he knew about her being from him a few years back and was not a surprise for him but is willing to get out of this depressive feelings and wants to go to court to get parental rights to visit his children. Patient is willing to acknowledge his needs and would like to get help to get the visitation rights to the court system once he gets out of his depressive feelings. Patient is a well-built male individual who is able to maintain good ambulation without any abnormal movements noted is alert and oriented to time place and person and denies of any active plans to hurt himself or others but expressiveness is dysphoric feelings and is willing to work with the staff in improving his coping skills and use the estate planning paralegal system to get the visitation rights from his ex- to visit his 2 kids who are with her at present. Diagnostic impression major depressive disorder History of substance use disorder Plan continue the current medications Encouraged the patient to attend milieu activities and therapeutic meetings to improve his coping skills and work towards his discharge and then use the public health epidemiologist system to go to family court to get visitation rights as the father of his 2 kids living in the community Dictated by Dr. Up thank you Assessment/Plan As Ranked By This Provider Problem List: 1. Depression 2. Suicidal ideation
[2018-03-31 20:12] VITALS: BP 138/76
[2018-04-01 08:33] VITALS: BP 124/77
--- NOTE | 2018-04-01 10:51 | CP SOUTH PROGRESS NOTE PSYCH ---
Psych (Inpt) Progress Note Progress Note Include the following elements, when applicable: Involvement in the active treatment of the patient with behavioral observations of the patient and the patient's response to the treatment. Review of the ongoing treatment process in the context of the treatment plan. Indication of how multi-disciplinary staff members are carrying out the treatment plan. Plans for future interventions and recommendations for revision of the treatment plan. Liaison with other physicians/providers. Progress Note: 32 years old white male patient was seen on the unit this morning he was able to come out of his room and was able to sit down and talk about his issues at length in the office. 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 He is able to walk well without any need for assistive devices and displays sad of affectual responses with depressed mood patterns. He is alert and oriented to time place and person and describes of being despondent and hopeless about his future he voices active suicidal plans as a matter of fact and feels that he is under extreme stress in spite of being on reasonable amount of medications . He was explained of the role of medications in blunting the symptoms but the real focus and stealing his life should come from him with the help of medications to slow down his thought process and look at positives in his life. However the patient describes having no support in the community and is being with another man and needs reassessment of his strengths and weaknesses in the team needs to review other options for his well-being. He had this will alert and oriented to time place and person and denies of any intrusive thoughts and hallucinatory experiences. He is not interested in self fund of general information about the events in the world but feels sorry about his state of affairs. Diagnostic impression major depressive disorder History of substance use disorder PTSD/seizure disorder by history Recommend obtain more information about his living situation and the community and support systems prior to his return to his community Dictated by Dr. Up.thank you
[2018-04-01 19:52] VITALS: BP 141/75
[2018-04-02 07:56] VITALS: BP 124/78
--- NOTE | 2018-04-02 09:10 | CP SOUTH PROGRESS NOTE PSYCH ---
Psych (Inpt) Progress Note Progress Note I reviewed Dr. Up's notes for the weekend of 03/31 and 2017. The patient's progress, treatment plan, and aftercare plans were discussed in the treatment team meeting this morning. Team members included: LCSWs, RNs, Activities Therapist, and Psychiatrist. Vital Signs: Date Time Temp Pulse B/P B/P Pulse 04/02 0756 96.2 77 124/78 04/01 1952 96.9 86 141/75 Mental status examination: He is alert and oriented to time place and person. Patient reported that he is feeling still feeling depressed and anxious. He reported that he still has some thoughts of wishing and thoughts of suicide over the weekend, feeling despondent and hopeless denies of any intrusive thoughts and hallucinatory experiences. He was coherent, there was no hallucinations, and there were no delusions during the interview Harris is a 32-year-old white male who was admitted Diagnostic impression major depressive disorder History of substance use disorder PTSD/seizure disorder by history Treatment plan update: Increase Paxil to 40 mg every morning Continue all other medications unchanged PTSD/seizure disorder by history Recommend obtain more information about his living situation and the community and support systems prior to his return to his community
--- NOTE | 2018-04-02 16:39 | SOCIAL WORKER PROG NOTE PSYCH ---
Social Work Progress Note Progress Note The services requested require additional review. You will be contacted regarding the status of this request if further information is needed. An authorization decision will be made within the required timeframes and details of that decision may be found under the member's authorization history. Member Name Member ID Member Subscriber Name Subscriber ID JODY RABAGO [id number] JODY RABAGO [id number] Pended Authorization # Client Authorization # Type of Request [id number] CONCURRENT Date of Admission/ Start of Services Requested From Submission Date 03/30/2018 04/02/2018 04/02/2018 Level of Service Type of Service Level of Care Type of Care INPATIENT/HLOC Mental Health Inpatient [facility]patient [facility] - Inpatient Hospital Reason Code P76 Provider Name & Address Provider ID Provider Alternate ID NPI # for Authorization RAYMON ESTRADA [id number] N/A [address] [facility] [address]
--- NOTE | 2018-04-02 16:53 | SOCIAL WORKER PROG NOTE PSYCH ---
Social Work Progress Note Progress Note This caption writer met with patient. He stated that he came to the hospital because "I don't feel like livin' no more." Patient stated that he has not contact with his fiance nor does he have contact with his children. He feels that his medications are not effective. Patient stated that he was admitted to [facility] about a week after his last discharge to [facility] due to feeling that his meds were not working. He stated that he felt that this had been addressed and felt stable upon leaving. Patient denied substance use other than using "1 line" of Cocaine about one week ago. He stated that he is having SI with thoughts to shoot himself. He stated that he feels safe here and will inform staff immediately if feeling unsafe. Patient reported decreased sleep and motivation. Patient stated that he would like to speak with his girlfriend and mother about a family meeting. He will informed this caption writer once he has done so in order for this caption writer to contact them for scheduling. Patient is interested in pursuing disability and obtaining food stamps. We discussed [facility] and this caption writer left a vm for Autumn Calloway inquirng about whether the patient has a primary care provider who is affiliated with (Dr. Vanegas). Patient denied any legal or DCF involvement. He denied HI/hallucinations.
[2018-04-02 20:16] VITALS: BP 138/84
[2018-04-03 08:11] VITALS: BP 117/62
--- NOTE | 2018-04-03 08:17 | CP SOUTH PROGRESS NOTE PSYCH ---
Psych (Inpt) Progress Note Progress Note The patient's progress, treatment plan, and aftercare plans were discussed in the treatment team meeting this morning. Team members included: LCSWs, RNs, Activities Therapist, and Psychiatrist. Vital Signs: Vital Signs Date Time Temp Pulse B/P B/P Pulse O2 FiO2 04/03 0811 96.9 86 117/62 04/02 2016 97.7 87 138/84 Mental status examination: Patient reported that today is the first day that he is not having thoughts of suicide or wishing He is alert and oriented to time place and person. Patient reported that he is still feeling depressed and anxious. Somewhat despondent and hopeless. denies of any intrusive thoughts and hallucinatory experiences. He was coherent, there was no hallucinations, and there were no delusions during the interview Diagnostic impression major depressive disorder History of substance use disorder PTSD/seizure disorder by history Treatment plan update: Continue medications unchanged
--- NOTE | 2018-04-03 16:05 | SOCIAL WORKER PROG NOTE PSYCH ---
Social Work Progress Note Progress Note Psychiatric CHW Note Met with pt to have [facility] ([facility]) release signed and discussed services. Left a message for [place] (3:28pm and returned call and left message at 4:00pm) to conduct referral and to see if the pt can be seen 04.04.18. Message relayed that pt is not appropriate for IOP(due to particular medication) so will have releases signed for [facility] IOP referral and [facility]. Pt also will sign a release for his girlfriend. Pt is sleeping so will have releases signed 04.04.18 to move forward with referrals. Nidia Rodriguez (Tish)
--- NOTE | 2018-04-03 16:34 | SOCIAL WORKER PROG NOTE PSYCH ---
Social Work Progress Note Progress Note This telegraphic typewriter operator met with patient. He shared that he was aggrevated "with the doctors," clarifying that he was aggrevated with the long wait list to see a prescriber at [facility]. He stated that he would like to return to [facility] for individual therapy. He would also like a referral to OPS for medication bridge appointment due to the wait list at [facility]. We discussed IOP, to which the patient stated that he was not willing to discontinue his Klonopin and is unable to go to IOP as a result. He is also not willing to go to [facility]. Other IOP programs will be explored/considered. Patient is agreeable to a family meeting with his girlfriend, Nancy Hobson ([phone]). He was informed that this telegraphic typewriter operator spoke with [facility], who confirmed that he could engage in their services based on his primary care provider. Nidia Rodriguez will submit a referral to [facility]. Patient denied SI/HI/hallucinations.
[2018-04-03 19:54] VITALS: BP 139/85
[2018-04-04 07:54] VITALS: BP 118/79
--- NOTE | 2018-04-04 10:28 | PN- Att Addend ---
Attending Addendum Attending Brief Note I was called to see thisn patient as he has left facial droop with lack movements in the left sided facial muscles. There is also some disappearance of the left nasolabial fold. Patient said that he noticed this last night. He is able to blink the eye but there is definitely difference between the 2 sites. He denies any weakness in any other part of his body. He was complaining of some chest pain this morning which was mainly substernal but slightly towards the right. Vital Signs Date Time Temp Pulse Resp B/P B/P Pulse O2 O2 Flow FiO2 Mean Ox Delivery Rate 04/04 754 97.8 74 118/79 04/03 1954 97.4 95 139/85 on exam: aox3, nad. cv; s1,s2, rrr resp: clear abd; soft, nt, bs+ ext; no edema. neuro: left sided facial movemenst limited. Lack on frowning left forehead. Left facila nerve palsy likely lower motor. the rest of nreuro exam is non focal. Laboratory Tests 04/04 04/04 09 0925 Serology Lyme Disease Screen Pending Lyme Disease Antibody Cancelled A/P; 32-year-old male with past medical history significant for seizure disorder , depression, anxiety, bipolar disease, insomnia, PTSD, admitted to [facility] because he had suicidal ideation with a plan. He has new findings of left-sided facial palsy. 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 We will need to rule out any other acute intracranial event. I have ordered a CAT scan of his head. If the CAT scan is negative then patient can be started on prednisone. Agree with checking Lyme. Psychiatrist has called the neurologist as well. His EKG did not show any acute changes. Patient's chest pain could be secondary to anxiety muscular skeletal. I am going to do one troponin to make sure that it is negative. The rest of the psych management would be up to the psychiatrist. If the CAT scan is negative then patient does not need to remain inpatient from medical standpoint. Please follow further neurology recommendations. I recommended CT head but later after neurologist eval CT was not recommended to be necessary by neurologist so we canceled that. Trop is neg. EKG was NSR.
--- NOTE | 2018-04-04 10:46 | SOCIAL WORKER PROG NOTE PSYCH ---
See Addendum Social Work Progress Note Progress Note Met with Harris this morning. He stated he is anxious and worried about his drooping face, and is eager to have a neurology consult. He reports some chest pain - stated he "always has it, but I didn't tell anyone here." I informed nursing - charge nurse. He denied SI/HI, no AH/VH. He rates anxiety 06/18 and depression /(worst). He plans to reside with his girlfriend in [place] and various other places in the [place]. He stated [facility] IOP is the best program location ped[place]. Discussed importance of relapse prevention - attend AA/NA. He will do this if it is required ot [facility].
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
--- NOTE | 2018-04-04 10:59 | SOCIAL WORKER PROG NOTE PSYCH ---
Social Work Progress Note Progress Note - [facility] - spoke with the Clinical director, Dalila Stone she stated they will not accept Harris into outpatient while he is in IOP at [facility]. They have a 5 month wait for a prescriber, and feel even after he completes IOP, they will not be able to accomodate him.
--- NOTE | 2018-04-04 11:18 | SOCIAL WORKER PROG NOTE PSYCH ---
See Addendum Social Work Progress Note Progress Note Psychiatric CHW Note Emailed(encrypt) referral to [place] at [facility] at 11:15am. Nidia Rodriguez (Tish)
--- NOTE | 2018-04-04 12:05 | SOCIAL WORKER PROG NOTE PSYCH ---
Social Work Progress Note Progress Note Phone meeting with Harris and his girlfriend, Nancy Hobson #[phone] - she is concerned about the facial droop with Harris - explained that he is undergoing tests and diagnoiss will be determined. Tried to reassure her. Discussed his psychiatric discharge recommendations for [facility] in [place] as he will have a walk-in intake likely to attend 04/09/18. She had no other concerns. Harris reassured her 'I will be ok." Harris stated he has been with Nancy for the past 2 weeks, will stay with her on and off in [place]. He will also stay with friends in the [place], his Mother in the [place] as well. He wanted information about transportation to [place]. Plan to try to see if Jessica can bring [facility], but Jessica may not transport as this is not his permanent address or a medical appointment. He has no money for a train. Looked up the [facility] train schedule - train leaves [place] 11:10am, 12:22pm, 2:41pm for [place]. Cost is [address] Possible [facility]ie can help patient. TC to [facility] - they request 3 weeks of medication for patient as prescriber may not be able to see him right away.
--- NOTE | 2018-04-04 12:33 | CP SOUTH PROGRESS NOTE PSYCH ---
Psych (Inpt) Progress Note Progress Note The patient's progress, treatment plan, and aftercare plans were discussed in the treatment team meeting this morning. Team members included: LCSWs, RNs, OTR/ L, and Psychiatrist. Vital Signs: Laboratory Tests 04/04 04/04 04/04 1037 0925 0925 Chemistry Troponin I (<0.11 ng/ml) < 0.01 Serology Lyme Disease Screen Pending Lyme Disease Antibody Cancelled Vital Signs Date Time Temp Pulse B/P B/P Pulse FiO2 04/04 0754 97.8 74 118/79 04/03 195 97.4 95 139/85 Mental status examination: Patient reported that he noticed facial weakness on the left side He did show signs of Chatterjee's palsy on the left side He was alert and oriented to time place and person. Patient reported that he is still feeling depressed and anxious but as despondent or hopeless. He denied thinking of suicide (this would be day #2 without suicide thoughts) He denied of any intrusive thoughts and hallucinatory experiences. He was coherent, there was no hallucinations, and there were no delusions during the interview Diagnostic impression major depressive disorder History of substance use disorder PTSD/seizure disorder by history New onself Chatterjee's palsy (left sided) Treatment Plan Update: Pt seen by worksite wellness practitioner, Prednisone addedd paxil reduced and gabapentin reduced because --in patient's point of view-- med changes yesterday are related to his facial weakness Continue medications unchanged
[2018-04-04 19:55] VITALS: BP 158/92
[2018-04-05 08:15] LABS: ABSOLUTE BASOPHIL COUNT 0 /CUMM (0.0-0.2); ABSOLUTE EOSINOPHIL COUNT 0.1 /CUMM (0.0-0.7); ABSOLUTE GRANULOCYTE CT 11.7 /CUMM (1.4-6.5); ABSOLUTE LYMPH COUNT 2.9 /CUMM (1.2-3.4); ABSOLUTE MONOCYTE COUNT 1.1 /CUMM (0.10-0.60); BASOPHIL % 0.3 % (0.0-2.0); EOSINOPHIL % 0.5 % (0-5); GRANULOCYTE % 73.9 % (42.2-75.2); MEAN CORPUSCULAR HGB CONC 32.8 G/DL (33.0-37.0); MEAN CORPUSCULAR VOLUME 88.3 FL (80.0-94.0); MEAN PLATELET VOLUME 8.9 FL (7.4-10.4); PLATELET COUNT 261 /CUMM (130-400); RBC DISTRIBUTION WIDTH 15.3 % (11.5-14.5); RED BLOOD CELL CT 5.67 /CUMM (4.70-6.10); WHITE BLOOD CELL COUNT 15.9 /CUMM (4.8-10.8)
[2018-04-05 08:17] VITALS: BP 140/77
[2018-04-05] MEDS ORDERED: KLONOPIN1 M1 PO (08:30)
[2018-04-05] MEDS ORDERED: DOXEPIN HCL25 MG PO (08:36)
[2018-04-05] MEDS ORDERED: DIVALPROEX SOD500 M2 PO (08:36)
[2018-04-05] MEDS ORDERED: GABAPENTIN400 M2 PO (08:36)
[2018-04-05] MEDS ORDERED: PAXIL30 M1 PO (08:36)
[2018-04-05] MEDS ORDERED: PREDNISONE20 M1 PO (08:37)
--- NOTE | 2018-04-05 10:48 | SOCIAL WORKER PROG NOTE PSYCH ---
Social Work Progress Note Progress Note Psychiatric CHW Note Per request of Dr. Caruso attempted to schedule neurology follow up appt w/Dr. Villanueva or Dr. Hicks but the pt's insurance is not accepted at the practice ( Neurological Specialist [phone]). Called [facility] to see if there is a neurologist that the pt can be referred to and was provided information for Dr. Jelani Dillon [phone] and left a message. Notified Dr. Caruso of this and provided Dr. Caruso with the physicians contact number([phone]) to see if an appt can be made as the pt is d/c'ing 04.05.18. Nidia Rodriguez (Tish)
--- NOTE | 2018-04-05 10:49 | SOCIAL WORKER PROG NOTE PSYCH ---
Social Work Progress Note Progress Note Pt denies si/hi/ah/vh. Pt is agreeable to [facility] referral and walk in intake appt. Pt will return to [address] in [place]. A [employer] ride was set up for this morning. Confirmation #[id number] Faxed Referral(s) Referred To: [facility] Documents sent: DC Instructions, Health Summary Faxed to: [facility] Fax #: [phone] Faxed by: Celeste Beavers Date faxed: 04/05/18 Time Faxed: [phone]
--- NOTE | 2018-04-05 12:12 | Patient Discharge Instructions ---
Psych Discharge Inst General Discharge Information Reason for Admission: thoughts of suicide Psy Discharge Primary Diag+ Unspecified Depressive DO Psy Discharge Secondary Diag+ PTSD Summary Tests/Major Procedures Lab ALT 113 U/L H 04/05/18 0630 AST 63 U/L H 04/05/18 0630 Albumin 4.3 g/dL 04/05/18 0630 Alkaline Phosphatase 51 U/L 04/05/18 0630 Direct Bilirubin 0.1 mg/dL 04/05/18 0630 Total Bilirubin 0.2 mg/dL 04/05/18 0630 Total Protein 7.1 g/dL 04/05/18 0630 Troponin I < 0.01 ng/ml 04/04/18 1037 Valproic Acid 66.4 ug/mL 04/05/18 0630 Studies Pending at DC: none Patient Instructions Contact Information Your Psychiatrist on [facility] was Orion WELLINGTON,Zachery * If you are experiencing an emergency related to this hospitalization, please call [phone] to contact the treating psychiatrist or the psychiatrist-on- call. * To Request a copy of your medical records, please contact the Medical Records Department at [phone]. * To request results of studies pending at the time of discharge, please call [phone]. * Continue your Medications until directed to stop by your Healthcare provider. General Medication Information Please continue to take your new medications and your continued home medications , unless otherwise indicated on your discharge medication list, or unless directed by your MD or DOCUMENT PROCESSOR to stop them. Special Instructions Diet Regular Activity Normal - Tobacco Use Treatment Offered Post DC Medications Offered: Refused Tob Medication Tx Post DC Tobacco Treatment Plan: Refused Tobacco Tx Pgm - EtOH/Drug Use D/O Treatment Offered Post DC Medications Offered: Ref Med EtOH/Drug Use D/O Post DC EtOH/SubAbuse TX Plan: Other SubAbuse/Dual Pgm Metabolic Screening Not Applicable, patient not on a neuroleptic. Advance Directives Does the Patient have Medical Advance Directives No/Refused further info Does Pt have Psychiatric Advance Directives? No/Refused further info Does Patient have a Designated Surrogate Decision Maker: No Information About Psychiatric Advance Directives Provided? Refused Discharge Plan Post Hospital Treatment Plan: [facility] substance abuse treatment IOP
--- NOTE | 2018-04-05 12:17 | CP SOUTH PROGRESS NOTE PSYCH ---
Psych (Inpt) Progress Note Progress Note The patient's progress, treatment plan, and aftercare plans were discussed in the treatment team meeting this morning. Team members included: LCSWs, RNs, OTR/ L, and Psychiatrist. Vital Signs: Vital Signs Date Time Temp Pulse Resp B/P B/P Pulse O2 O2 Flow FiO2 04/05 0835 97.3 04/05 0817 97.3 82 140/77 Mental status examination: Patient reported that he tolerated prednisone well (signs of Chatterjee's palsy on the left side) He was alert and oriented to time place and person. Patient reported that he was feeling less depressed and anxious but denied thinking of suicide He denied of any intrusive thoughts and hallucinatory experiences. He was coherent, there were no hallucinations, and there were no delusions during the interview Diagnostic impression major depressive disorder History of substance use disorder PTSD/seizure disorder by history New onself Chatterjee's palsy (left sided) Treatment Plan Update: D/C to self-care/girlfriend's home changes yesterday are related to his facial weakness Continue medications unchanged
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
--- NOTE | 2018-04-06 14:44 | SOCIAL WORKER PROG NOTE PSYCH ---
Social Work Progress Note Progress Note Psychiatric CHW Note Determination Status: DISCHARGE COMPLETED Thank you. You have completed your discharge for this episode of care. Member Name Member ID Member Subscriber Name Subscriber ID JODY SAVAGEOFALO [id number] JODY Aye GEM [id number] Related Authorization # Related Client Authorization # Discharge # Discharge Date [id number] 04/05/2018 Level of Service Type of Service Level Of Care Type of Care IP - INPATIENT/HLOC P - MENTAL HEALTH I - INPATIENT CIP - INPATIENT HOSPITAL - INPATIENT HOSPITAL Provider Name & Address Provider ID Provider Alternate ID FREDY BIJAL [id number] [address] [place] [phone]
== END 2018-04-05 13:32 | DRG 754 ==
LOC: ERH 19:22 → CP SOUTH 03-30 10:58 → ERHI 03-30 10:58 → ENTRNSPT 03-30 11:17 → CMPTRNSPT 03-30 12:09 → CP SOUTH 03-30 12:15
PROVIDERS: Emergency Medicine; Psychiatry & Neurology Psychiatry
DX: F32.9 Major depressive disorder, single episode, unspecified (principal); F43.10 Post-traumatic stress disorder, unspecified
CPT/HCPCS: 86618; 87476; 36415; 80307; 93005; 93010; G0463; G0480; J0515